=== PATIENT | male | born 1970 | race Caucasian/White ===

== ENCOUNTER 2017-01-15 13:48 | Emergency (ER) | payer OTHER ==
[~2017-01-15] VITALS: Ht 177.8 cm; Wt 90.9 kg
[~2017-01-15 13:48] MED LIST: AMOX500T PO; ATEN50TA2 PO; CARA1TAB2 PO; CATA0.1D TD; CEPALOZ2 OR; CEPH2CAP PO; CILOXAN OS; CLON0.5T PO; FLON0.05; FOLI1TAB OR; IBUP600T26 PO; IRON325T3 PO; LORA1TAB PO; MULTIVIT PO; NICO21DI26 EXT; NICO21DI4 TD; NICO21PAT EXT; OMEP20CA3 PO; OMEP40CA2 PO; OXAZ10CA PO; OXAZ15CA2 OR; PRED20TA PO; THIA100T OR; THIA100T PO; VALS80CA PO; VITACAP8 PO; ZOLO100T PO
[2017-01-15] MEDS ORDERED: METF500T13 PO (14:01)
[2017-01-15 14:36] VITALS: BP 135/78
== END 2017-01-15 14:37 | disposition home or self-care (01) ==
LOC: M ED 13:48
DX: F10.10 Alcohol abuse, uncomplicated (principal); E11.9 Type 2 diabetes mellitus without complications; I10 Essential (primary) hypertension; K21.9 Gastro-esophageal reflux disease without esophagitis; F17.210 Nicotine dependence, cigarettes, uncomplicated; Z79.84 Long term (current) use of oral hypoglycemic drugs; Z79.899 Other long term (current) drug therapy

== ENCOUNTER 2017-01-15 17:36 | Emergency (ER) | payer OTHER ==
[~2017-01-15] VITALS: Ht 177.8 cm; Wt 90.9 kg
[~2017-01-15 17:36] MED LIST changes: +METF500T13 PO
[2017-01-15 18:56] VITALS: BP 151/88
== END 2017-01-15 18:58 | disposition home or self-care (01) ==
LOC: M ED 17:36
DX: R10.10 Upper abdominal pain, unspecified (principal); E11.9 Type 2 diabetes mellitus without complications; I10 Essential (primary) hypertension; F17.210 Nicotine dependence, cigarettes, uncomplicated; Z79.84 Long term (current) use of oral hypoglycemic drugs; Z79.899 Other long term (current) drug therapy

== ENCOUNTER → 2017-03-01 | Outpatient (CLI) | payer OTHER ==
[2017-03-01 13:22] LABS: BASO % 0.4 % (0.0-1.0); EOS # 0.1 K/mm3 (0.0-0.50); EOS % 1.8 % (0.0-3.0); LYMPH # 2.2 K/mm3 (1.5-4.5); LYMPH % 31.9 % (24.0-44.0); MEAN CORPUSCULAR HEMOGLOBIN 31.1 pg (27.0-33.0); MEAN CORPUSCULAR VOLUME 91.3 fl (80.0-96.0); MONO # 0.4 K/mm3 (0.0-0.8); NEUTROPHILS % 57.4 % (36.0-66.0); RED CELL DISTRIBUTION WIDTH 14.2 % (11.5-14.5); WHITE BLOOD COUNT 6.9 K/mm3 (4.0-10.0)
[2017-03-01 13:34] LABS: ALBUMIN 3.9 GM/DL (3.2-5.2); ALBUMIN/GLOBULIN RATIO 0.93 (1.00-1.93); ALKALINE PHOSPHATASE 130 U/L (45-117); ALT/SGPT 57 U/L (12-78); ANION GAP 8 MEQ/L (8-16); AST/SGOT 47 U/L (15-37); BILIRUBIN,TOTAL 0.5 MG/DL (0.2-1.0); BLOOD UREA NITROGEN 8 MG/DL (7-18); CALCIUM LEVEL 9.2 MG/DL (8.5-10.1); CARBON DIOXIDE LEVEL 28 MEQ/L (21-32); CHLORIDE LEVEL 104 MEQ/L (98-107); CREATININE FOR GFR 0.82 MG/DL (0.70-1.30); GLOMERULAR FILTRATION RATE > 60.0 (>60); GLUCOSE, FASTING 121 MG/DL (70-105); POTASSIUM SERUM 4.1 MEQ/L (3.5-5.1); SODIUM LEVEL 140 MEQ/L (136-145); TOTAL PROTEIN 8.1 GM/DL (6.4-8.2)
== END ==
LOC: M WUC 08:51
PROVIDERS: ATTEND Nurse Practitioner Family
DX: D69.59 Other secondary thrombocytopenia (principal); I10 Essential (primary) hypertension; E11.9 Type 2 diabetes mellitus without complications; R79.89 Other specified abnormal findings of blood chemistry

== ENCOUNTER → 2017-05-23 | Outpatient (REF) | payer OTHER ==
[2017-05-23 15:54] LABS: ALBUMIN 4.1 GM/DL (3.2-5.2); ALBUMIN/GLOBULIN RATIO 0.93 (1.00-1.93); ALKALINE PHOSPHATASE 95 U/L (45-117); ALT/SGPT 24 U/L (12-78); ANION GAP 9 MEQ/L (8-16); AST/SGOT 20 U/L (7-37); BILIRUBIN,TOTAL 0.5 MG/DL (0.2-1.0); BLOOD UREA NITROGEN 7 MG/DL (7-18); CALCIUM LEVEL 9.2 MG/DL (8.5-10.1); CARBON DIOXIDE LEVEL 29 MEQ/L (21-32); CHLORIDE LEVEL 101 MEQ/L (98-107); CHOLESTEROL LEVEL 196 MG/DL (<200); CREATININE FOR GFR 0.92 MG/DL (0.70-1.30); GLOMERULAR FILTRATION RATE > 60.0 (>60); GLUCOSE, FASTING 130 MG/DL (70-105); POTASSIUM SERUM 4.6 MEQ/L (3.5-5.1); SODIUM LEVEL 139 MEQ/L (136-145); TOTAL PROTEIN 8.5 GM/DL (6.4-8.2); TRIGLYCERIDES LEVEL 147 MG/DL (<150)
== END ==
LOC: M LABDRAW1 13:46 → M LABNEURO 13:46
PROVIDERS: ATTEND Nurse Practitioner Family
DX: E11.9 Type 2 diabetes mellitus without complications (principal)

== ENCOUNTER 2018-09-11 21:23 | Inpatient (IN) | payer MEDICAID, OTHER ==
[~2018-09-11] VITALS: Ht 180.3 cm; Wt 90.0 kg
[2018-09-11] MEDS ORDERED: NS 1,000 ML IV ONE (22:15)
--- NOTE | 2018-09-11 22:39 | REP ---
Clinical: Trauma . Comparison: 07/30/2013 . Findings: The ventricles, sulci, and cisterns are normal in position and appearance. Kay-white differentiation is maintained. No acute intracranial hemorrhage, mass/mass effect, pathology or trauma/injury. No evidence for acute infarction. No extra-axial fluid collection. Calvarium is intact. Paranasal sinuses and mastoid air cells are clear. Impression: Normal noncontrast head CT. No evidence for acute intracranial pathology or trauma/injury. Electronically Signed by Geronimo Zhao MD 09/11/2018 10:31 P
[2018-09-11 22:40] LABS: HEMATOCRIT 40.9 % (42.0-52.0); HEMOGLOBIN 13.4 g/dl (13.5-17.5); MEAN CORPUSCULAR HEMOGLOBIN 28.2 pg (27.0-33.0); MEAN CORPUSCULAR HGB CONC 32.8 g/dl (32.0-36.5); MEAN CORPUSCULAR VOLUME 85.9 fl (80.0-96.0); RED BLOOD COUNT 4.76 10^6/uL (4.30-6.10); WHITE BLOOD COUNT 6.4 10^3/uL (4.0-10.0)
--- NOTE | 2018-09-11 22:41 | REP ---
Clinical: Trauma. Comparison: 07/30/2013 . Technique: Axial noncontrast images from the skull base to the thoracic inlet with coronal and sagittal re-formations Findings: Normal alignment and lordosis is maintained. Cervical vertebral bodies including transverse processes and spinous processes are intact and there is no evidence for acute fracture / compression injury or subluxation. Spinal canal is patent. Posterior elements are intact. Paravertebral soft tissues are normal. Impression: Age-related changes. No evidence for acute pathology or trauma/injury. Electronically Signed by Geronimo Zhao MD 09/11/2018 10:33 P
[2018-09-11 22:51] LABS: PLATELET COUNT, AUTOMATED 63 10^3/uL (150-450)
[2018-09-11 23:02] LABS: AMPHETAMINES LEVEL URINE NEGATIVE (NEGATIVE); BARBITURATES URINE NEGATIVE (NEGATIVE); BENZODIAZEPINES URINE POSITIVE (NEGATIVE); CANNABINOIDS URINE NEGATIVE (NEGATIVE); COCAINE METABOLITE URINE NEGATIVE (NEGATIVE); METHADONE URINE NEGATIVE (NEGATIVE); OPIATES URINE NEGATIVE (NEGATIVE); PHENCYCLIDINE URINE NEGATIVE (NEGATIVE)
[2018-09-11 23:14] LABS: ACETAMINOPHEN LEVEL < 2.0 UG/ML (10.0-30.0); ALBUMIN 3.6 GM/DL (3.2-5.2); ALT/SGPT 51 U/L (12-78); BILIRUBIN,DIRECT 0.1 MG/DL (0.0-0.2); BILIRUBIN,TOTAL 0.4 MG/DL (0.2-1.0); BLOOD UREA NITROGEN 5 MG/DL (7-18); CALCIUM LEVEL 8.3 MG/DL (8.5-10.1); CARBON DIOXIDE LEVEL 27 MEQ/L (21-32); CHLORIDE LEVEL 104 MEQ/L (98-107); CREATININE FOR GFR 0.78 MG/DL (0.70-1.30); ETHYL ALCOHOL (ETHANOL) 0.203 % (0.000-0.010); GLOMERULAR FILTRATION RATE > 60.0 (>60); GLUCOSE, FASTING 160 MG/DL (70-100); POTASSIUM SERUM 3.6 MEQ/L (3.5-5.1); SALICYLATE LEVEL < 1.7 MG/DL (5.0-30.0); SODIUM LEVEL 139 MEQ/L (136-145); THYROID STIMULATING HORMONE 0.395 uIU/ML (0.358-3.740)
[2018-09-12] MEDS ORDERED: OXAZEPAM 15 MG CAP PO ONE (00:45)
[2018-09-12] MEDS ORDERED: THIAMINE 100 MG TAB PO SCH ×2 (00:45→21:00)
[2018-09-12] MEDS ORDERED: DIAZ10TA2 PO (00:49)
[2018-09-12] MEDS ORDERED: FOLI1TAB11 PO (00:49)
[2018-09-12] MEDS ORDERED: OMEP20CA3 PO (00:49)
[2018-09-12] MEDS ORDERED: VITATAB11 PO (00:49)
[2018-09-12] MEDS ORDERED: ATEN50TA2 PO (00:49)
[2018-09-12] MEDS ORDERED: ZOLO100T PO (00:49)
[2018-09-12] MEDS ORDERED: IBUPOTC PO (00:49)
[2018-09-12] MEDS ORDERED: metFORMIN (GLUCOPHAGE) 500 MG TAB PO ONE (08:00)
[2018-09-12] MEDS ORDERED: ATENOLOL 50 MG TAB PO ONE (08:00)
[2018-09-12] MEDS ORDERED: diazePAM 10 MG TAB PO ONE (08:00)
[2018-09-12] MEDS ORDERED: OMEPRAZOLE 20 MG CAP PO ONE (08:00)
[2018-09-12] MEDS ORDERED: SERTRALINE 100 MG TAB PO ONE (08:00)
[2018-09-12] MEDS ORDERED: NICOTINE 21MG/24HR 1 EA TRANSDERMAL TD SCH (09:00)
[2018-09-12] MEDS ORDERED: FOLIC ACID 1 MG TAB PO SCH (09:00)
[2018-09-12] MEDS ORDERED: MULTIVITAMINS/MINERALS THERAP 1 TAB PO SCH (09:00)
[2018-09-12] MEDS: LORazepam 2 MG TAB PO PRN ×2 (09:45→12:58)
[2018-09-12] MEDS ORDERED: NICOTINE 21MG/24HR 1 EA TRANSDERMAL TD ONE (11:30)
[2018-09-12] MEDS ORDERED: cloNIDine 0.1 MG TAB PO PRN (13:00)
[2018-09-12] MEDS ORDERED: ACETAMINOPHEN TAB 650MG DOSE (2X325MG) PO PRN (13:00)
[2018-09-12] MEDS ORDERED: MAALOX 30 ML SUSP *UDC PO PRN (13:00)
[2018-09-12] MEDS ORDERED: MOM 30ML SUSPENSION UDC PO PRN (13:00)
[2018-09-12 13:29] VITALS: BP 175/99
[2018-09-12 13:32] VITALS: BP 175/99
[2018-09-12] MEDS ORDERED: LORazepam 2 MG TAB PO PRN (15:15)
[2018-09-12] MEDS: THIAMINE 100 MG TAB PO SCH (15:40)
[2018-09-12] MEDS: cloNIDine 0.1 MG TAB PO SCH ×2 (15:44→21:59)
[2018-09-12] MEDS: metFORMIN (GLUCOPHAGE) 500 MG TAB PO SCH (17:29)
[2018-09-12 18:00] VITALS: BP 148/88
[2018-09-12] MEDS: diazePAM 10 MG TAB PO PRN (19:03)
[2018-09-12] MEDS: OMEPRAZOLE 20 MG CAP PO SCH (21:58)
[2018-09-12] MEDS: VITAMIN B COMPLEX/VIT C CAP PO SCH (21:58)
[2018-09-12] MEDS: traZODone 50 MG TAB PO PRN (21:59)
[2018-09-13 06:39] VITALS: BP 160/90
[2018-09-13] MEDS: diazePAM 10 MG TAB PO PRN (06:53)
[2018-09-13] MEDS: SERTRALINE 100 MG TAB PO SCH (08:16)
[2018-09-13] MEDS: cloNIDine 0.1 MG TAB PO SCH ×3 (08:16→20:39)
[2018-09-13] MEDS: FOLIC ACID 1 MG TAB PO SCH (08:16)
[2018-09-13] MEDS: MULTIVITAMINS/MINERALS THERAP 1 TAB PO SCH (08:16)
[2018-09-13] MEDS: OMEPRAZOLE 20 MG CAP PO SCH ×2 (08:16→20:38)
[2018-09-13] MEDS: THIAMINE 100 MG TAB PO SCH ×2 (08:16→20:39)
[2018-09-13] MEDS: metFORMIN (GLUCOPHAGE) 500 MG TAB PO SCH ×2 (08:17→17:12)
[2018-09-13] MEDS: NICOTINE 21MG/24HR 1 EA TRANSDERMAL TD SCH (08:17)
[2018-09-13] MEDS ORDERED: MULTIVITAMINS/MINERALS THERAP 1 TAB PO SCH (09:00)
[2018-09-13] MEDS ORDERED: FOLIC ACID 1 MG TAB PO SCH ×2 (09:00)
--- NOTE | 2018-09-13 09:45 | HPEPDOC ---
[facility] Medical History & Physical Date of Admission Sep 12, 2018 History and Physical PCP: Bee Moreno NP ATTENDING: Dr. Monisha Jarquin HPI: 47 yo M admitted to [facility] for depressive disorder, being medically examined today. No acute medical complaints today. Denies any fevers, chills, weakness, fatigue, TELLEZ, CP, SOB, cough, palpitations, abdominal pain, N/V/D or changes in bowel or bladder habits. PMHx: Anxiety Depression DM Hypertension GERD PSHX: Denies SOCHX: Resides in: [facility] Marital Status: Kids: 4 Employment: Unemployed Tobacco use: One pack per day ETOH: One case of beer prior to admission, states had not drank alcohol for 3 years. Illicit Drugs: Denies IV Drug Use: Denies Tattoos done unprofessionally: Denies FAMHX: Mother: , lung cancer Father: , mesothelioma secondary to asbestos exposure Siblings: 6 Alive, diabetes, history of alcohol use Children: Alive, son with history of alcohol use Unexpected deaths due to medical reasons: None. ROS: As noted in HPI, otherwise 11pt ROS of systems reviewed and unremarkable. 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 PE: GEN: 47 yo M, appears stated age. Well-nourished, well developed. No acute distress. Alert and oriented x 3. Pleasant, interactive. HEENT: Normocephalic, atraumatic. Pupils are equal, round, and reactive to light. Extraocular movements are intact. No nystagmus appreciated. Sclera are nonicteric. Conjunctiva without injection. Nose midline. Nasal turbinates without bogginess. EACs both patent BL. TMs both visualized and elizabeth with good cone of light, no bulging or erythema. No facial asymmetry. Moist mucous memb ranes. Dentition fair. Pharynx pink and moist, no cobblestoning. Neck supple, trachea midline. No lymphadenopathy or thyromegaly appreciated. CHEST: Regular rate and rhythm, +S1, +S2 LUNGS: Clear to auscultation bilaterally. No wheezes, rales, or rhonchi. Breathing appears symmetric and easy. Patient is speaking in full sentences. No accessory muscle use. ABD: Round, soft, non-tender, non-distended. +Bowel sounds throughout. No rebound or guarding. No costovertebral angle tenderness. EXT: Pulses 2+ bilaterally dorsalis pedis and radial. No lower extremity edema appreciated. SKIN: [place], dry, warm. Capillary refill <2sec. No rashes. NEURO: Alert and oriented x 3. Cranial nerves III-XII are intact. No focal deficits appreciated. EKG: pending A&P: 47 yo M admitted to [facility] for depressive disorder 1. Psych. Plan per Psychiatry. Obtain baseline EKG to assure the safety of psychiatric medications as they can prolong the QT interval. 2. Nicotine dependence. Patch available. 3. DM. Consistent carbohydrate diet. Continue metformin 500 mg by mouth twice a day. Blood sugar this a.m. was noted to be 162. 4. Follow up with PCP on discharge. 5. Substance use. Management per psychiatry. Continue with MVI, Thiamine, and Folic Acid supplementation. 6. Hypertension. Continue atenolol 50 mg by mouth daily. 7. GERD. Continue Prilosec 40 mg by mouth daily. 8. Elevated AST. Likely related to alcohol use. Recheck CMP in a.m. 9. Staff member Alverto present throughout exam. Vital Signs Vital Signs Date Time Temp Pulse Resp B/P (MAP) Pulse Ox O2 Delivery O2 Flow Rate FiO2 09/13/18 08:16 160/90 09/13/18 06:39 98.8 73 16 09/12/18 08:08 97 Room Air Laboratory Data Labs 24H Laboratory Tests 2 09/13/18 06:22: Bedside Glucose (Misc Panel) 162H Home Medications Scheduled Atenolol (Atenolol) 50 Mg Tab, 50 MG PO DAILY B1/B2/B3/B5/B6 (Vitamin B Complex) 1 Tab Tab, 1 TAB PO DAILY Folic Acid (Folic Acid) 1 Mg Tab, 1 MG PO DAILY Metformin Hydrochloride (Metformin HCl) 500 Mg Tab, 500 MG PO BID Omeprazole (Omeprazole) 20 Mg Cap, 20 MG PO BID Sertraline Hcl (Zoloft) 100 Mg Tab, 100 MG PO DAILY Scheduled PRN Diazepam (Diazepam) 10 Mg Tab, 10 MG PO TID PRN for ANXIETY Ibuprofen (Ibuprofen) 200 Mg Tab, 600 MG PO Q6H PRN for HEADACHE OR PAIN Allergies Coded Allergies: No Known Allergies (Verified , 09/11/18) Tamela Teresa Sep 13, 2018 09:45
[2018-09-13] MEDS: VITAMIN B COMPLEX/VIT C CAP PO SCH (09:56)
[2018-09-13] MEDS: ATENOLOL 50 MG TAB PO SCH (10:00)
[2018-09-13] MEDS ORDERED: diazePAM 10 MG TAB PO PRN (14:30)
--- NOTE | 2018-09-13 14:50 | MHHPEPDOC ---
General Date Of Admission: Sep 13, 2018 Legal Status: 9.39 Chief Complaint "I drank too much" History of Present Illness HISTORY OF THE PRESENT ILLNESS: Patient is a 47 -year-old , male, who reports he was drinking with his family and ended up "passing out" so his oldest brother called EMS, bringing him into the hospital. Says he drank "too much", reports he has antabuse at home and wants to go to AA meetings with his son. Reports he is not suicidal, but has been depressed over last several weeks. He has depression that runs in the family, including son, sister. Reports he may have made statements he cannot remember when intoxicated and that he would "never harm myself". Reports caring for mother in law, who is passing away slowly from cancer, winter weather and drinking with visiting sister, brother and nephew as stressors. Reports he has not drank since his last admission in December 2016 prior to this period of drinking. Last couple weeks says he has drank up to 18 drinks per week and prior to admission drank 24 beers. Says he has been consistent with his sertraline 100 mg PO daily. His was contacted by social work and reports no ligature scott on neck, does not believe he has actually attempted in the past or tried to hang himself on this occasion. He has loops for hanging his deer in the garage. He has made vague suicidal statements to her in the past, without an active plan and always in context of alcohol use, which is increased during the holiday season. reports she has removed weapons from the home. He has no past inpatient psychiatric appointments. Agrees to start acamprosate for alcohol cravings, aripiprazole for augmentation of SSRI and decrease prn valium with plan to frank down and discontinue. Denies withdrawal symptoms including shakiness, sweating and has not received lorazepam for elevated CIWA score. Reports he wants to leave and feels safe to leave. Currently denies SI/HI/AVH/PTSD/howard. Psychiatric Review of Systems Depression (2 or more weeks): depressed mood (Says he has been sad since mother and law slowly passing away, used to take of her. ), anhedonia (Has not been doing his uilding, he is semi retired.), feelings of excess/guilt (Related to drinking.) Howard (4 or more days of): denies Psychosis: denies PTSD: denies Anxiety: gen/non-specific anxiety (Reports everyday stress), panic attacks (prior to starting the zoloft in 2002 ) Anxiety/ 6 months or more of: restlessness, keyed up Past Psychiatric History Previous Psychiatric Diagnosis: "depression", alcohol use disorder Previous Psychiatric Admissions: No past admissions reported. Denies any dual diagnosis or inpatient rehab admissions. Suicide Attempts: Denies Psychiatric Follow-up: Dr Jennifer Moreno, PCP, prescribes his medications, does not have an outpatient therapist Psychiatric medications: sertraline (denies side effects, reports helps with mood), valium (for anxiety) Past Medical History Medical Problems HTN, GERD and DM2 Head Injury: Yes (On this admission says he fell and may have hit his head (CT in Ed negative on this admission)) Seizures: No Hospitalizations: Yes Surgeries: No Family Medical/Psychiatric HX Medical Problems Both parents . DM 2 in brother Edgardo, father, mother, maternal grandmother. HTN in father, paternal grandfather, brothers. Mother Sclc. Family hx of GERD Psychiatric Disorders: Yes Addiction: Yes (Reports 2 sisters, oldest brother had alcoholism) Suicide Attemps/Completions: No Addiction History nicotine (1 ppd), alcohol Social History Childhood: Grew up in [place], [place], parents were . Grew up with 2 sisters and 3 brothers, he was second to youngest. Father 3 years ago due to mesothelioma, now receiving benefits (main source of income). Currently lives in an owned house, in [facility] [place], lives with , "Radha" (18 years together)and 2 boys (24 from first marriage, 20 y/o), 1 daughter (16 y/o daughter). Has a "love child" from former girlfriend when 17, she's [place], not in contact anymore. 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 Marital: Mental Status Examination General Appearance: unkempt, personal clothing Build: average Demeanor: guarded, very figety Eye Contact: avoidant Activity: slowed, anxious Behavior: resistant, restless, withdrawn, status post overdose Speech: clear, spontaneous, reg/rate,rhythm,volume Mood: anxious, irritable Mood depressed Affect: constricted, congruent, anxious Thought Process: logical/linear Thought Content (Delusions): none reported Thought Content (Other): guarded, guilty Thought Content (Aggressive): none reported Perception (Hallucinations): none reported Perception (Other): none reported Cognition (Impairment of): attention/concentration Oriented: Awake, Alert, Oriented times three Insight: poor Judgment: Poor Psychosis: Denies Diagnoses 1. Generalized anxiety disorder 2. Alcohol use disorder, chronic, severe 3. Seasonal affective disorder 4. Tobacco use disorder Assessment Patient is admitted on a after brother called EMS, brought to hospital with alcohol intoxication. Denies withdrawal symptoms including shakiness, headache. Agreeable to continue medications including 100 mg Po sertraline for mood. Denies side effects of medications. Likely minimizing alcohol use. Reports benzodiazepines and alcohol on occasion help with chronic, greater than 6 months, generalized anxiety. Wants to leave. Denies SI/HI/AVH/howard/PTSD symptoms. He is pre-contemplative regarding alcohol use and likely minimizing use, not amenable for inpatient rehab. Reports he wants to return home and has support from his family. Agreeable to starting medications. Was educated regarding alcohol and tobacco use. Problem List Problems: (1) ETOH abuse Status: Chronic Response to Treatment: Progressing Discussed With: Patient (2) Suicidal ideation Status: Resolved Discussed With: Patient Initial Treatment Plan 1. Patient was admitted on a [] status. 2. Complete history was obtained. 3. With patients permission, family will be contacted and database will be expanded. 4. Patients medication regimen will be reviewed and changed accordingly. 5. Patient will be provided with protected environment. 6. Patient will be treated with individual, group, and milieu therapies. 7. Patient will receive supportive psych-education. 8. Discharge planning will commence immediately. 9. Outpatient follow-up treatment will be strongly recommended. 10. The initial treatment plan will focus initially on: * Depression. * Risk for suicide. * Substance abuse, alcohol abuse. ESTIMATED LENGTH OF STAY: 5-7 DAYS. TIME SPENT COUNSELING AND COORDINATING INITIAL CARE: 60 minutes. Vital Signs Vital Signs Date Time Temp Pulse Resp B/P (MAP) Pulse Ox O2 Delivery O2 Flow Rate FiO2 09/13/18 10:00 72 150/88 09/13/18 06:39 98.8 16 09/12/18 08:08 97 Room Air Laboratory Data 24H Labs Laboratory Tests 2 09/13/18 06:22: Bedside Glucose (Misc Panel) 162H Medications Scheduled Atenolol (Atenolol) 50 Mg Tab, 50 MG PO DAILY, (Reported) B1/B2/B3/B5/B6 (Vitamin B Complex) 1 Tab Tab, 1 TAB PO DAILY, (Reported) Folic Acid (Folic Acid) 1 Mg Tab, 1 MG PO DAILY, (Reported) Metformin Hydrochloride (Metformin HCl) 500 Mg Tab, 500 MG PO BID, (Reported) Omeprazole (Omeprazole) 20 Mg Cap, 20 MG PO BID, (Reported) Sertraline Hcl (Zoloft) 100 Mg Tab, 100 MG PO DAILY, (Reported) Scheduled PRN Diazepam (Diazepam) 10 Mg Tab, 10 MG PO TID PRN for ANXIETY, (Reported) Ibuprofen (Ibuprofen) 200 Mg Tab, 600 MG PO Q6H PRN for HEADACHE OR PAIN, (Reported) Allergies Coded Allergies: No Known Allergies (Verified , 09/11/18) MARGARITO ROUSSEAU PGY-1 Sep 13, 2018 12:07
[2018-09-13] MEDS: ACAMPROSATE CALCIUM 333 MG TABLET (CAMPRAL) PO SCH ×2 (15:14→20:39)
[2018-09-13 18:00] VITALS: BP 152/82
--- NOTE | 2018-09-13 19:35 | ECGEPIP ---
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
[2018-09-13] MEDS: ARIPiprazole 2 MG TAB PO SCH (20:39)
[2018-09-13] MEDS: traZODone 50 MG TAB PO PRN (20:39)
[2018-09-13 21:50] VITALS: BP 148/80
[2018-09-14 06:37] VITALS: BP 131/72
[2018-09-14 06:45] LABS: HEMATOCRIT 41.7 % (42.0-52.0); HEMOGLOBIN 13.7 g/dl (13.5-17.5); MEAN CORPUSCULAR HEMOGLOBIN 28.5 pg (27.0-33.0); MEAN CORPUSCULAR HGB CONC 32.9 g/dl (32.0-36.5); MEAN CORPUSCULAR VOLUME 86.7 fl (80.0-96.0); RED BLOOD COUNT 4.81 10^6/uL (4.30-6.10); WHITE BLOOD COUNT 5.1 10^3/uL (4.0-10.0)
[2018-09-14 07:00] LABS: HEMOGLOBIN A1c 7.6 %
[2018-09-14 07:10] LABS: ALBUMIN 3.7 GM/DL (3.2-5.2); ALT/SGPT 53 U/L (12-78); BILIRUBIN,TOTAL 0.7 MG/DL (0.2-1.0); BLOOD UREA NITROGEN 8 MG/DL (7-18); CALCIUM LEVEL 8.7 MG/DL (8.5-10.1); CARBON DIOXIDE LEVEL 28 MEQ/L (21-32); CHLORIDE LEVEL 101 MEQ/L (98-107); CHOLESTEROL LEVEL 207 MG/DL (<200); CHOLESTEROL RISK RATIO 6.088 (<5); CREATININE FOR GFR 0.88 MG/DL (0.70-1.30); GLOMERULAR FILTRATION RATE > 60.0 (>60); GLUCOSE, FASTING 172 MG/DL (70-100); HDL CHOLESTEROL 34 MG/DL (>40); LDL CHOLESTEROL 129 MG/DL (<100); NON-HDL-C 173 MG/DL; POTASSIUM SERUM 3.9 MEQ/L (3.5-5.1); SODIUM LEVEL 137 MEQ/L (136-145); TOTAL PROTEIN 7.8 GM/DL (6.4-8.2); TRIGLYCERIDES LEVEL 221 MG/DL (<150)
[2018-09-14 07:11] LABS: PLATELET COUNT, AUTOMATED 50 10^3/uL (150-450)
[2018-09-14] MEDS: SERTRALINE 100 MG TAB PO SCH (08:30)
[2018-09-14] MEDS: ACAMPROSATE CALCIUM 333 MG TABLET (CAMPRAL) PO SCH (08:30)
[2018-09-14] MEDS: OMEPRAZOLE 20 MG CAP PO SCH (08:30)
[2018-09-14 08:31] VITALS: BP 131/72
[2018-09-14] MEDS: ATENOLOL 50 MG TAB PO SCH (08:31)
[2018-09-14] MEDS: VITAMIN B COMPLEX/VIT C CAP PO SCH (08:31)
[2018-09-14] MEDS: metFORMIN (GLUCOPHAGE) 500 MG TAB PO SCH (08:31)
[2018-09-14] MEDS: THIAMINE 100 MG TAB PO SCH (08:31)
[2018-09-14] MEDS: ARIPiprazole 2 MG TAB PO SCH (08:31)
[2018-09-14] MEDS: cloNIDine 0.1 MG TAB PO SCH (08:31)
[2018-09-14] MEDS: FOLIC ACID 1 MG TAB PO SCH (08:32)
[2018-09-14] MEDS: NICOTINE 21MG/24HR 1 EA TRANSDERMAL TD SCH (08:32)
[2018-09-14] MEDS: MULTIVITAMINS/MINERALS THERAP 1 TAB PO SCH (09:00)
[2018-09-14] MEDS ORDERED: ARIP2TAB PO (11:01)
[2018-09-14] MEDS ORDERED: NICO21PAT TD (11:01)
[2018-09-14] MEDS ORDERED: VITMTA PO (11:01)
[2018-09-14] MEDS ORDERED: CLONI1TA PO (11:01)
[2018-09-14] MEDS ORDERED: THIA100TA PO (11:01)
[2018-09-14] MEDS ORDERED: TRAZO50TA PO (11:01)
[2018-09-14] MEDS ORDERED: LISI10TA4 PO (11:06)
[2018-09-14] MEDS ORDERED: DIAZ5TAB PO (11:08)
[2018-09-14] MEDS ORDERED: ABIL1TAB11 PO (16:19)
--- NOTE | 2018-09-15 09:34 | MHDSPDOC ---
[facility] Discharge Summary Discharge Summary DATE OF ADMISSION: Sep 12, 2018 at 12:46 DATE OF DISCHARGE: Sep 14, 2018 DISCHARGE DIAGNOSES: 1. Generalized anxiety disorder 2. Alcohol use disorder, chronic, severe 3. Seasonal affective disorder 4. Tobacco use disorder REASON FOR ADMISSION: Per this financial underwriter's H and P 09/12/18: "Patient is a 47 -year-old , male, who reports he was drinking with his family and ended up "passing out" so his oldest brother called EMS, bringing him into the hospital. Says he drank "too much", reports he has antabuse at home and wants to go to AA meetings with his son. Reports he is not suicidal, but has been depressed over last several weeks. He has depression that runs in the family, including son, sister. Reports he may have made statements he cannot remember when intoxicated and that he would "never harm myself". Reports caring for mother in law, who is passing away slowly from cancer, winter weather and drinking with visiting sister, brother and nephew as stressors. Reports he has not drank since his last admission in December 2016 prior to this period of drinking. Last couple weeks says he has drank up to 18 drinks per week and prior to admission drank 24 beers. Says he has been consistent with his sertraline 100 mg PO daily. His was contacted by social work and reports no ligature scott on neck, badillo s not believe he has actually attempted in the past or tried to hang himself on this occasion. He has loops for hanging his deer in the garage. He has made vague suicidal statements to her in the past, without an active plan and always in context of alcohol use, which is increased during the holiday season. reports she has removed weapons from the home. He has no past inpatient psychiatric appointments. Agrees to start acamprosate for alcohol cravings, aripiprazole for augmentation of SSRI and decrease prn valium with plan to frank down and discontinue. Denies withdrawal symptoms including shakiness, sweating and has not received lorazepam for elevated CIWA score. Reports he wants to leave and feels safe to leave." CONSULTANTS INVOLVED: None TREATMENT AND PROGRESS ON THE UNIT : Patient admitted on a 9.39 after making suicidal statements while intoxicated with alcohol, BAL on admission 0.205, was given fluids in the ED, B vitamin complex, folic acid, thiamine, put on CIWA protocol with diazepam 10 mg TID and received ibuprofen for headache. EKG showed since rhythm with SVPC's and non-specific conduction delay,normal range QTc (denied chest pain, SOB or neurological changes during stay), cbc showed anemia with hgb of 13.4 g/dl which on repeat cbc was 13.7 g/dl (within normal range), cmp was unremarkable apart from elevated glucose in 160's-170's mg/dl and AST of 57 U/l. Lipid panel showed elevated LDL at 129 mg/dl, elevated total cholesterol at 207 mg/dl and low hdl level at 34 mg/dl. His haba1c was 7.6% showing uncontrolled diabetes. He was continued on CIWA protocol with diazepam (tapered down to 5 mg PO TID PRN for withdrawals/anxiety), thiamine, folic acid sup plementation during stay. Was taking clonidine 0.1 PO TID for anxiety which was discontinued due to continuing his other blood pressure medications, atenolol 50 mg daily and added lisinopril 10 mg daily. He was continued on metformin 500 mg BID for diabetes and other home medications including sertraline 100 mg daily for depression, omeprazole 20 mg BID for gastro-esophageal reflux disease. His mood and anxiety improved during stay. He was started on aripiprazole 5 mg QHS for augmentation of his antidepressant and impulse control. Was educated about risks of chronic alcohol use. Reports he started drinking more during holidays and did not want inpatient rehabilitation, reporting he did not think he needed the treatment. During stay denied suicidal ideations or homicidal ideations and tolerated medications without side effects. Reports may have made statements while intoxicated. He did not attend most group therapy sessions. He was pre- occupied about discharge and returning home. He felt safe to leave and family agreed he could return home. HOSPITAL COURSE: See above DISCHARGE ASSESSMENT: Patient in no acute distress, alert and oriented x4, At time of discharge denies any suicidal or homicidal ideations, denies any hallucinations, paranoia, symptoms of alcohol withdrawal, denies any side effects of medications, denies any PTSD symptoms. Has mild anxiety while waiting to leave and return home to his family. Agreeable to discharge. MENTAL STATUS EXAMINATION ON DISCHARGE: Patient is a 47-year old male, who is calm, cooperative, in casual clothing, glasses and short hair, poor hygiene, good eye-contact. Speech is normal rate, rhythm, volume Language skills are intact Thought processes including: linear, logical Thought content: Preoccupied with returning home to see family. Abstract reasoning, and computation: intact. Description of associations: intact. Description of abnormal or psychotic thoughts: denies. Judgment: poor Insight: poor Orientation: x4 Recent and remote memory: intact Attention span and concentration: fair Language: hungarian Fund of knowledge: average Mood: "good" Affect: mild anxiety, full range, smiles MEDICATIONS ON DISCHARGE: Scheduled Aripiprazole (Abilify) 5 Mg Tab, 1 TAB PO QHS for depression Atenolol (Atenolol) 50 Mg Tab, 50 MG PO DAILY B1/B2/B3/B5/B6 (Vitamin B Complex) 1 Tab Tab, 1 TAB PO DAILY Folic Acid (Folic Acid) 1 Mg Tab, 1 MG PO DAILY Lisinopril (Lisinopril) 10 Mg Tab, 1 TAB PO DAILY for HYPERTENSION Metformin Hydrochloride (Metformin HCl) 500 Mg Tab, 500 MG PO BID for diabetes Multivitamins *[facility]* (Thera M Plus *[facility]*) 1 Tab Tab, 1 TAB PO DAILY for ALCOHOL WITHDRAWALS Nicotine (Nicotine Transdermal Syst) 21 Mg/24 Hr Dis, 1 PATCH TD DAILY for NICOTINE WITHDRAWALS Omeprazole (Omeprazole) 20 Mg Cap, 20 MG PO BID for Gerd Sertraline Hcl (Zoloft) 100 Mg Tab, 100 MG PO DAILY for depression Thiamine Hcl (Thiamine Hcl) 100 Mg Tab, 100 MG PO BID for ALCOHOL WITHDRAWALS Scheduled PRN Diazepam (Diazepam) 5 Mg Tab, 1 TAB PO BIDP PRN for anxiety Ibuprofen (Ibuprofen) 200 Mg Tab, 600 MG PO Q6H PRN for HEADACHE OR PAIN, Trazodone HCl (Trazodone HCl) 50 Mg Tab, 50 MG PO QHSP PRN for INSOMNIA PLAN/FOLLOWUP ARRANGEMENTS: Follow Up Care Education Label * Mental Health Appt 1 * Mental Health [facility]ism * Established With This Provider No * Therapist ALPHONSE RAO * Date Sep 18, 2018 * Time 08:00 * Address of Clinic or Practice [address] [place] [address] * * Additional information Please remember to bring your insurance card and photo ID to the appointment. Follow Up Care Education Label * Chemical Dependency Appt1 * Chemical Dependency [facility] * Established With This Provider No Follow Up Care Education Label * Medical * Medical Follow Up [facility] * Established With This Provider Yes * Therapist GILDARDO VELASCO * Date Sep 20, 2018 * Time 09:40 * Address of Clinic or Practice [address] [place] [address] * The amount of time spent in the coordination of care for this patient was approximately 10 minutes. Vital Signs/I&Os Vital Signs Date Time Temp Pulse Resp B/P (MAP) Pulse Ox O2 Delivery O2 Flow Rate FiO2 09/14/18 08:31 131/72 09/14/18 08:31 88 09/14/18 06:37 97.5 14 09/12/18 08:08 97 Room Air Laboratory Data Labs 24H Laboratory Tests 2 09/14/18 06:23: Nucleated Red Blood Cells % (auto) 0.0, Immature Platelet Fraction 5.8, Anion Gap 8, Glomerular Filtration Rate > 60.0, Estimated Mean Plasma Glucose 171H, Hemoglobin A1c 7.6, Blood Urea Nitrogen 8#, Creatinine 0.88, Sodium Level 137, Potassium Level 3.9, Chloride Level 101, Carbon Dioxide Level 28, Calcium Level 8.7, Aspartate Amino Transf (AST/SGOT) 57H, Alanine Aminotransferase (ALT/SGPT) 53, Alkaline Phosphatase 109, Total Bilirubin 0.7#, Triglycerides Level 221H, LDL Cholesterol 129H, Total Protein 7.8, Albumin 3.7, Albumin/Globulin Ratio 0.90L, Total Cholesterol 207H, Non-HDL Cholesterol (LDL + VLDL) 173, Total HDL Cholesterol 34L, Cholesterol/HDL Ratio 6.088H CBC/BMP Laboratory Tests 09/14/18 06:23 Red Blood Count 4.81, Mean Corpuscular Volume 86.7, Mean Corpuscular Hemoglobin 28.5, Mean Corpuscular Hemoglobin Concent 32.9, Red Cell Distribution Width 15.0 H, Calcium Level 8.7, Aspartate Amino Transf (AST/SGOT) 57 H, Alanine Aminotran sferase (ALT/SGPT) 53, Alkaline Phosphatase 109, Total Bilirubin 0.7 #, Triglycerides Level 221 H, LDL Cholesterol 129 H, Total Protein 7.8, Albumin 3.7 Medications Scheduled Aripiprazole (Abilify) 5 Mg Tab, 1 TAB PO QHS for qmp for 7 Days, #7 Atenolol (Atenolol) 50 Mg Tab, 50 MG PO DAILY, (Reported) B1/B2/B3/B5/B6 (Vitamin B Complex) 1 Tab Tab, 1 TAB PO DAILY, (Reported) Folic Acid (Folic Acid) 1 Mg Tab, 1 MG PO DAILY, (Reported) Lisinopril (Lisinopril) 10 Mg Tab, 1 TAB PO DAILY for HYPERTENSION for 7 Days, #7 Metformin Hydrochloride (Metformin HCl) 500 Mg Tab, 500 MG PO BID, (Reported) Multivitamins *[facility]* (Thera M Plus *[facility]*) 1 Tab Tab, 1 TAB PO DAILY for ALCOHOL WITHDRAWALS, #7 Nicotine (Nicotine Transdermal Syst) 21 Mg/24 Hr Dis, 1 PATCH TD DAILY for NICOTINE WITHDRAWALS, #7 Omeprazole (Omeprazole) 20 Mg Cap, 20 MG PO BID, (Reported) Sertraline Hcl (Zoloft) 100 Mg Tab, 100 MG PO DAILY, (Reported) Thiamine Hcl (Thiamine Hcl) 100 Mg Tab, 100 MG PO BID for ALCOHOL WITHDRAWALS, #14 Scheduled PRN Diazepam (Diazepam) 5 Mg Tab, 1 TAB PO BIDP PRN for anxiety for 7 Days, #14 Ibuprofen (Ibuprofen) 200 Mg Tab, 600 MG PO Q6H PRN for HEADACHE OR PAIN, (Reported) Trazodone HCl (Trazodone HCl) 50 Mg Tab, 50 MG PO QHSP PRN for INSOMNIA, #7 Allergies Coded Allergies: No Known Allergies (Verified , 09/11/18) MARGARITO ROUSSEAU PGY-1 Sep 14, 2018 12:04
== END 2018-09-14 12:35 | disposition home or self-care (01) | DRG 756 ==
LOC: M ED 21:23 → M ED INP 09-12 12:46 → M PSY 09-12 13:20
PROVIDERS: ADMIT Psychiatry & Neurology Psychiatry; ATTEND Psychiatry & Neurology Psychiatry
DX: F41.1 Generalized anxiety disorder (principal); I10 Essential (primary) hypertension; F10.229 Alcohol dependence with intoxication, unspecified; F17.200 Nicotine dependence, unspecified, uncomplicated; K21.9 Gastro-esophageal reflux disease without esophagitis; E11.9 Type 2 diabetes mellitus without complications; Z79.84 Long term (current) use of oral hypoglycemic drugs; Z79.899 Other long term (current) drug therapy

== ENCOUNTER 2018-10-05 18:00 | Emergency (ER) | payer MEDICAID, OTHER ==
[~2018-10-05] VITALS: Ht 177.8 cm; Wt 90.9 kg
[~2018-10-05 18:00] MED LIST changes: +ABIL1TAB11 PO; +ARIP1TAB4 PO; +CLONI1TA PO; +DIAZ10TA2 PO; +DIAZ5TAB PO; +FOLI1TAB11 PO; +IBUPOTC PO; +LISI10TA4 PO; +NICO21DI3 EXT; -NICO21PAT EXT; +NICO21PAT TD; +THIA100TA PO; +TRAZO50TA PO; +VITATAB11 PO; +VITMTA PO
[2018-10-05] MEDS ORDERED: AUGMENTIN 875 MG TAB PO ONE (19:45)
[2018-10-05] MEDS ORDERED: ADACEL/BOOSTRIX VACCINE (DIPHTH/PERTUSS/ACELL/TETANUS)0.5ML SYR (90715) IM ONE (19:45)
[2018-10-05] MEDS ORDERED: IBUP-1022 PO (19:54)
[2018-10-05] MEDS ORDERED: AUGM875T28 PO (19:54)
[2018-10-05 19:56] VITALS: BP 148/95
== END 2018-10-05 20:03 | disposition home or self-care (01) ==
LOC: M ED 18:00
DX: S01.311A Laceration without foreign body of right ear, initial encounter (principal); S51.831A Puncture wound without foreign body of right forearm, initial encounter; W54.0XXA Bitten by dog, initial encounter; Y92.89 Other specified places as the place of occurrence of the external cause; I10 Essential (primary) hypertension; Z79.899 Other long term (current) drug therapy; F17.210 Nicotine dependence, cigarettes, uncomplicated

== ENCOUNTER 2018-10-23 13:55 | Emergency (ER) | payer OTHER ==
[~2018-10-23 13:55] MED LIST changes: +AUGM875T28 PO; +IBUP-1022 PO
[2018-10-23 14:59] VITALS: BP 160/94
[2018-10-24] MEDS ORDERED: DIAZ10TA2 PO (12:46)
[2018-10-24] MEDS ORDERED: MULTCAP PO (12:46)
[2018-10-24] MEDS ORDERED: VITATAB47 PO (12:46)
== END 2018-10-23 15:01 | disposition home or self-care (01) ==
LOC: M ED 13:55
DX: F10.10 Alcohol abuse, uncomplicated (principal); S60.819A Abrasion of unspecified wrist, initial encounter; Y04.8XXA Assault by other bodily force, initial encounter; Y93.9 Activity, unspecified; Y99.9 Unspecified external cause status; E11.9 Type 2 diabetes mellitus without complications; I10 Essential (primary) hypertension; K21.9 Gastro-esophageal reflux disease without esophagitis; F41.9 Anxiety disorder, unspecified; Z72.0 Tobacco use; Z79.84 Long term (current) use of oral hypoglycemic drugs; Z79.899 Other long term (current) drug therapy

== ENCOUNTER 2018-10-23 23:49 | Inpatient (IN) | payer MEDICAID, OTHER ==
[~2018-10-23] VITALS: Ht 175.3 cm; Wt 69.0 kg
[2018-10-24 00:29] LABS: HEMATOCRIT 43.9 % (42.0-52.0); HEMOGLOBIN 14.4 g/dl (13.5-17.5); MEAN CORPUSCULAR HEMOGLOBIN 28.2 pg (27.0-33.0); MEAN CORPUSCULAR HGB CONC 32.8 g/dl (32.0-36.5); MEAN CORPUSCULAR VOLUME 85.9 fl (80.0-96.0); RED BLOOD COUNT 5.11 10^6/uL (4.30-6.10)
[2018-10-24 00:42] LABS: AMPHETAMINES LEVEL URINE NEGATIVE (NEGATIVE); BARBITURATES URINE NEGATIVE (NEGATIVE); BENZODIAZEPINES URINE POSITIVE (NEGATIVE); CANNABINOIDS URINE NEGATIVE (NEGATIVE); COCAINE METABOLITE URINE NEGATIVE (NEGATIVE); METHADONE URINE NEGATIVE (NEGATIVE); OPIATES URINE NEGATIVE (NEGATIVE); PHENCYCLIDINE URINE NEGATIVE (NEGATIVE)
[2018-10-24 00:50] LABS: ACETAMINOPHEN LEVEL < 2.0 UG/ML (10.0-30.0); ALBUMIN 3.8 GM/DL (3.2-5.2); ALT/SGPT 65 U/L (12-78); BILIRUBIN,DIRECT 0.2 MG/DL (0.0-0.2); BILIRUBIN,TOTAL 0.5 MG/DL (0.2-1.0); BLOOD UREA NITROGEN 4 MG/DL (7-18); CALCIUM LEVEL 7.8 MG/DL (8.5-10.1); CARBON DIOXIDE LEVEL 25 MEQ/L (21-32); CHLORIDE LEVEL 106 MEQ/L (98-107); ETHYL ALCOHOL (ETHANOL) 0.295 % (0.000-0.010); GLOMERULAR FILTRATION RATE > 60.0 (>60); GLUCOSE, FASTING 158 MG/DL (70-100); POTASSIUM SERUM 3.5 MEQ/L (3.5-5.1); SALICYLATE LEVEL 2.4 MG/DL (5.0-30.0); SODIUM LEVEL 140 MEQ/L (136-145); THYROID STIMULATING HORMONE 0.644 uIU/ML (0.358-3.740); TOTAL PROTEIN 7.9 GM/DL (6.4-8.2)
[2018-10-24 01:03] LABS: PLATELET COUNT, AUTOMATED 78 10^3/uL (150-450)
[2018-10-24] MEDS ORDERED: MULTIVITAMINS/MINERALS THERAP 1 TAB PO SCH (09:00)
[2018-10-24] MEDS ORDERED: metFORMIN (GLUCOPHAGE) 500 MG TAB PO ONE (09:30)
[2018-10-24] MEDS ORDERED: ATENOLOL 50 MG TAB PO ONE (09:30)
[2018-10-24] MEDS ORDERED: MULTIVITAMINS/MINERALS THERAP 1 TAB PO ONE (09:30)
[2018-10-24] MEDS ORDERED: SERTRALINE 100 MG TAB PO ONE (09:30)
[2018-10-24] MEDS ORDERED: diazePAM 10 MG TAB PO ONE (09:30)
[2018-10-24] MEDS ORDERED: OMEPRAZOLE 20 MG CAP PO ONE (09:30)
[2018-10-24] MEDS ORDERED: diazePAM 5 MG TAB PO ONE (09:45)
[2018-10-24] MEDS ORDERED: DIAZ10TA2 PO (12:46)
[2018-10-24] MEDS ORDERED: VITATAB47 PO (12:46)
[2018-10-24] MEDS ORDERED: MULTCAP PO (12:46)
[2018-10-24] MEDS ORDERED: ACETAMINOPHEN TAB 650MG DOSE (2X325MG) PO PRN (13:00)
[2018-10-24] MEDS ORDERED: MOM 30ML SUSPENSION UDC PO PRN (13:00)
[2018-10-24] MEDS ORDERED: MAALOX 30 ML SUSP *UDC PO PRN (13:00)
[2018-10-24] MEDS ORDERED: LORazepam 2 MG TAB PO PRN (13:00)
[2018-10-24] MEDS ORDERED: traZODone 50 MG TAB PO PRN (13:00)
[2018-10-24 13:28] VITALS: BP 186/98
[2018-10-24 13:30] VITALS: BP 186/98
[2018-10-24] MEDS: THIAMINE 100 MG TAB PO SCH ×2 (13:39→20:27)
[2018-10-24] MEDS: FOLIC ACID 1 MG TAB PO SCH (13:39)
[2018-10-24] MEDS: NICOTINE 21MG/24HR 1 EA TRANSDERMAL TD SCH (13:45)
[2018-10-24 15:28] VITALS: BP 170/90
[2018-10-24] MEDS: cloNIDine 0.1 MG TAB PO SCH ×2 (16:00→20:28)
[2018-10-24] MEDS: diazePAM 10 MG TAB PO PRN (16:00)
[2018-10-24] MEDS ORDERED: IBUPROFEN 800 MG TAB PO PRN (17:00)
[2018-10-24] MEDS: metFORMIN (GLUCOPHAGE) 500 MG TAB PO SCH (17:31)
[2018-10-24 18:36] VITALS: BP 170/95
[2018-10-24 18:58] VITALS: BP 163/97
[2018-10-24] MEDS: OMEPRAZOLE 20 MG CAP PO SCH (20:27)
[2018-10-24] MEDS ORDERED: cloNIDine 0.1 MG TAB PO SCH (21:00)
[2018-10-24 22:51] VITALS: BP 138/88
[2018-10-25] MEDS: diazePAM 10 MG TAB PO PRN (03:03)
[2018-10-25 06:17] VITALS: BP 154/90
--- NOTE | 2018-10-25 07:05 | HPEPDOC ---
General Date of Admission October 24, 2018 at 12:53 Chief Complaint The patient is a 47-year-old male admitted with a reason for visit of Unspecifie d Mood Disorder. Source: Patient, Old records History of Present Illness 47 yo M with PMH of Anxiety, depression, Diabetes, Hypertension, GERD admitted to [facility] for Nonspecified depressive disorder. Patient was outside shooting his gun when his son went to check on him he turned the gun on to himself said had lots of stress in his life his being sick and it was the best way. His son wrestled the gun from him police was called and patient was brought to the ED. No acute medical complaints today. Denies any fevers, chills, weakness, fatigue, TELLEZ, CP, SOB, cough, palpitations, abdominal pain, N/V/D or changes in bowel or bladder habits. Home Medications Scheduled Atenolol (Atenolol) 50 Mg Tab, 50 MG PO DAILY, (Reported) B Cmplx 4/Vit D3/C/Folic/Zinc (Vital-D Rx Tablet) 1 Each Tablet, 1 TAB PO DAILY, (Reported) Folic Acid (Folic Acid) 1 Mg Tab, 1 MG PO DAILY, (Reported) Metformin HCl (Metformin HCl) 500 Mg Tab, 500 MG PO BID, (Reported) Multivitamin (Multivitamins) 1 Each Capsule, 1 CAP PO DAILY, (Reported) Omeprazole (Omeprazole) 20 Mg Cap, 20 MG PO BID, (Reported) Sertraline Hcl (Zoloft) 100 Mg Tab, 100 MG PO DAILY, (Reported) Scheduled PRN Diazepam (Diazepam) 10 Mg Tablet, 10 MG PO TID PRN for ANXIETY/AGITATION, (Reported) Ibuprofen (Ibuprofen) 200 Mg Tab, 600 MG PO Q6H PRN for HEADACHE OR PAIN, (Reported) Allergies Coded Allergies: No Known Allergies (Verified , 09/11/18) Past Medical History Medical History Anxiety, depression, Diabetes, Hypertension, Gerd Surgical History None Family History Mother: , lung cancer Father: , mesothelioma secondary to asbestos exposure Siblings: 6 Alive, diabetes, history of alcohol use Children: Alive, son with history of alcohol use Unexpected deaths due to medical reasons: None. Social History * Smoker: current smoker, greater than 1 pack/day Alcohol: heavy Drugs: denies Resides in: [facility]– [place][Note 2] Marital Status: Kids: 4 Employment: Unemployed Tattoos done unprofessionally: Denies A-FIB/CHADSVASC A-FIB History Current/History of A-Fib/PAF?: No Review of Systems Constitutional: Denies: Chills, Fever, Night Sweats Eyes: Reports: Pain, Other; Denies: Vision change, Eyelid inflammation, Redness ENT: Denies: Head Aches, Ear Pain, Dysphagia Skin: Reports: Bruising; Denies: Rash, Lesions, Breakdown Pulmonary: Denies: Dyspnea, Cough Cardiovascular: Denies: Chest Pain, Palpitations, Orthopnea, Paroxysmal Noc. Dyspnea, Lt Headedness Gastrointestinal: Denies: Nausea, Vomiting, Abdominal Pain, Diarrhea Genitourinary: Denies: Dysuria, Frequency, Incontinence, Retention Musculoskeletal: Reports: Leg Pain Neurological: Denies: Weakness, Numbness, Change in speech, Confusion Physical Examination General Exam: Positive: Alert, Cooperative, No Acute Distress Eye Exam: Positive: PERRLA, Conjunctiva & lids normal, EOMI; Negative: Sclera icteric ENT Exam: Positive: Atraumatic, Mucous membr. moist/pink, Pharynx Normal Neck Exam: Positive: Supple; Negative: JVD, thyromegaly Chest Exam: Positive: Clear to auscultation, Normal air movement Heart Exam: Positive: Rate Normal, Regular Rhythm, Normal S1, Normal S2; Negative: Murmurs, Rubs Abdomen Exam: Positive: Normal bowel sounds, Soft; Negative: Tenderness, Hepatospenomegaly Extremity Exam: Positive: Normal pulses; Negative: Clubbing, Cyanosis, Edema Skin Exam: Positive: Nl turgor and temperature; Negative: Breakdown, Lesion Neuro Exam: Positive: Normal Speech, Strength at 5/5 X4 ext Psych Exam: Positive: Anxiety, Memory Intact, Oriented x 3 Vital Signs Vital Signs Date Time Temp Pulse Resp B/P (MAP) Pulse Ox O2 Delivery O2 Flow Rate FiO2 10/24/18 13:30 98.6 110 18 186/98 (127) 10/24/18 12:48 99 Room Air Laboratory Data Labs 24H Laboratory Tests 2 10/24/18 00:02: Nucleated Red Blood Cells % (auto) 0.0, Immature Platelet Fraction 5.9, Anion Gap 9, Glomerular Filtration Rate > 60.0, Calcium Level 7.8L, Aspartate Amino Transf (AST/SGOT) 79H, Alanine Aminotransferase (ALT/SGPT) 65, Alkaline Phosph atase 101, Total Bilirubin 0.5, Direct Bilirubin 0.2, Total Protein 7.9, Albumin 3.8, Albumin/Globulin Ratio 0.93L, Thyroid Stimulating Hormone (TSH) 0.644, Salicylates Level 2.4L, Urine Amphetamines Screen NEGATIVE, Urine Benzodiazepines Screen POSITIVEH, Urine Opiates Screen NEGATIVE, Urine Methadone Screen NEGATIVE, Acetaminophen Level < 2.0L, Urine Barbiturates Screen NEGATIVE, Urine Phencyclidine Screen NEGATIVE, Urine Cocaine Metabolite Screen NEGATIVE, Urine Cannabinoids Screen NEGATIVE, Ethyl Alcohol Level 0.295H CBC/BMP Laboratory Tests 10/24/18 00:02 Red Blood Count 5.11, Mean Corpuscular Volume 85.9, Mean Corpuscular Hemoglobin 28.2, Mean Corpuscular Hemoglobin Concent 32.8, Red Cell Distribution Width 16.1 H Assessment/Plan 47 yo M with PMH of Anxiety, depression, Diabetes, Hypertension, GERD admitted to [facility] for Nonspecified depressive disorder. Patient was outside shooting his gun when his son went to check on him he turned the gun on to himself said had lots of stress in his life his being sick and it was the best way. His son wrestled the gun from him police was called and patient was brought to the ED. Patient is being seen for medical history and physical. Psych. Plan per Psychiatry. Nicotine dependence. Patch available. DM. last A1c 7.6 Consistent carbohydrate diet. Continue metformin 500 mg by mouth twice a day. Substance abuse alcohol Management per psychiatry. Continue with MVI, Thiamine, and Folic Acid supplementation. on CIWA protocol Hypertension. Continue atenolol 50 mg by mouth daily. If Bp not controlled will add clonidine GERD. Continue omeprazole. mouth daily. DVT prophylaxis: ambulation Plan / VTE VTE Prophylaxis Ordered?: Yes CAMERON CHEN MD October 24, 2018 14:51
[2018-10-25] MEDS: THIAMINE 100 MG TAB PO SCH (08:07)
[2018-10-25 08:08] VITALS: BP 154/90
[2018-10-25] MEDS: NICOTINE 21MG/24HR 1 EA TRANSDERMAL TD SCH (08:08)
[2018-10-25] MEDS: cloNIDine 0.1 MG TAB PO SCH (08:08)
[2018-10-25] MEDS: OMEPRAZOLE 20 MG CAP PO SCH (08:08)
[2018-10-25] MEDS: FOLIC ACID 1 MG TAB PO SCH (08:08)
[2018-10-25] MEDS: metFORMIN (GLUCOPHAGE) 500 MG TAB PO SCH (08:08)
[2018-10-25] MEDS ORDERED: MULTIVITAMINS/MINERALS THERAP 1 TAB PO SCH (09:00)
[2018-10-25] MEDS ORDERED: SERTRALINE 100 MG TAB PO SCH (09:00)
[2018-10-25] MEDS ORDERED: ATENOLOL 50 MG TAB PO SCH (09:00)
[2018-10-25] MEDS ORDERED: NALTREXONE 50 MG TAB PO SCH (09:00)
[2018-10-25 09:16] VITALS: BP 148/82
[2018-10-25 09:17] VITALS: BP 148/82
--- NOTE | 2018-10-25 11:17 | MHHPEPDOC ---
General Date Of Admission: October 24, 2018 Legal Status: 9.39 Chief Complaint "I was trying to shoot at a skunk in my shed". History of Present Illness HISTORY OF THE PRESENT ILLNESS: Patient is a 47 -year-old , male, with a psych history of depression, anxiety, alcohol abuse, last d/c [facility] for suspected SI and alcohol intoxication who was brought to ED by police under 9.41 after pt's adult son called 911 b/c pt outside shooting a gun while heavily intoxicated and pointed the gun at himself when the son came out and see him. Per ED, son found pt on ground pointing a gun at himself (didn't make SI comment though) and pt son wrestled it from him to take away. Per ED when pt there he stated he was going thru a lot of stress as his gpjzcd-ra-yto is on hospice care in his home and he "can't take all the moaning and groaning" so he self medicates with alcohol calling it his "fix for now." Pt stated per ED that there's a skunk in his shed and he can't take the smell so decided to load his shotgun and shoot it missing several times as he was heavily intoxicated so pt stated he gave up, unloaded it, was trying to put it away while standing on a chair and fell which is why his son found him on the ground. Denied he was trying to kill himself. Per pt's son in the ED, pt drinks to intoxication daily and his BAL on admission was 0.295 Psychiatric Review of Systems Depression (2 or more weeks): depressed mood, insomnia/hypersomnia (insomnia), difficulty concentrating, suicidal thoughts Suzan (4 or more days of): denies PTSD: denies Anxiety: situational anxiety, stressor related anxiety Anxiety/ 6 months or more of: restlessness, keyed up, difficulty concentrating, irritability, sleep disturbance Past Psychiatric History Previous Psychiatric Diagnosis: depression, generalized anxiety d/o, alcohol use disorder Previous Psychiatric Admissions: [facility] for depression, alcohol abuse, SI 09/12/18 Suicide Attempts: Denies Psychiatric Follow-up: referred to [facility] and creto upon d/c [facility] 09/14/18 Psychiatric medications: sertraline, abilify (not taking currently), trazodone prn(not taking currently), valium prn (last d/c [facility] 09/14/18) Past Medical History Medical Problems HTN, GERD and DM2 Head Injury: No Seizures: No Hospitalizations: Yes Surgeries: No Family Medical/Psychiatric HX Medical Problems Both parents . DM 2 in brother Edgardo, father, mother, maternal grandmother. HTN in father, paternal grandfather, brothers. Mother Sclc. Family hx of GERD Psychiatric Disorders: Yes Addiction: Yes (Reports 2 sisters, oldest brother had alcoholism) Addiction History nicotine, alcohol (bal 0.295. drinks to intoxication daily), other (benzodiazepines (valium prescribed), utox positive) Social History Childhood: Grew up in [place], [place], parents were . Grew up with 2 sisters and 3 brothers, he was second to youngest. Father 3 years ago due to mesothelioma, now receiving benefits (main source of income). . 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 Receives benefits as stated above Social Support: His family Legal: 1 DWI, 10 years ago. Marital: , 18yrs. 2 sons (24y/o from first marriage, 20 y/o), 1 daughter (16 y/o daughter). Has a "love child" from former girlfriend when 17, she's [place], not in contact anymore Mental Status Examination General Appearance: disheveled, appears stated age, hospital scubs/clothing Build: average Demeanor: very figety, other (unreliable) Eye Contact: average Activity: anxious Behavior: cooperative, restless, other (unreliable) Speech: clear, spontaneous, reg/rate,rhythm,volume Mood: depressed, anxious Mood "I'm fine" Affect: constricted, appropriate, incongruent, anxious Thought Process: logical/linear, intact Thought Content (Delusions): none reported, denies SI, HI, AVH Thought Content (Other): none reported, appropriate Thought Content (Aggressive): none reported Perception (Hallucinations): none reported Perception (Other): none reported Cognition (Impairment of): none reported Cognition(Intelligence Est.): average Oriented: Awake, Alert, Oriented times three Insight: poor Judgment: Poor Psychosis: Denies Diagnoses Depression Unspecified R/O adjustment d/o with depression and anxiety Generalized anxiety disorder Alcohol use disorder, chronic, severe Benzodiazepine use disorder A-FIB/CHADSVASC A-FIB History Current/History of A-Fib/PAF?: No Current Oral Anticoagulant The: No Treatment Treatment ordered: NONE Reason Anticoagulant not given: Not indicated/Fcewb5tzui Assessment Pt seen and states he there was a "skunk getting into my trash so I got the 12 gauge to shoot it and missed and went to put it away on a shelf and fell with a deer head on me." States he chugged 12 beers prior to grabbing his gun. States he doesn't want harm himself or others. States he relapsed on alcohol over [facility] after he had been attacked by a pit bull. Also discussed stress of arklwj-nj-dgc on hospice who could pass away at any time and wanting to be there to support his . States "I messed up" and that he's going to stop drinking all together. Advised that that is not particularly safe due to risk of withdrawal and withdrawal seizure with possible . Also pt taking valium which he denies taking that day but advised utox positive so he was taking it and that it acts very similarly in the brain as alcohol as is usually very addictive in presence a history or current alcohol use so recommend d/c of that as well increasing his risk of withdrawal if not detoxed. Pt states he just wants to go home and again reviewed safety risks and concern should he pt discharged without complete detox. States he wants to start Vivitrol for alcohol abuse and advised the hospital doesn't have it available here but can start naltrexone daily for alcohol urge which he's agreeable to, risks benefits discussed. Denies SI/HI, hallucinations, delusions. Denies alcohol withdrawal symptom, but hands appear slightly tremulous which he tries to deny in hopes he can be discharged soon. Initial Treatment Plan 1. Patient was admitted on a 9.39 status. 2. Complete history was obtained. 3. With patients permission, family will be contacted and database will be expanded. 4. Patients medication regimen will be reviewed and changed accordingly. 5. Patient will be provided with protected environment. 6. Patient will be treated with individual, group, and milieu therapies. 7. Patient will receive supportive psych-education. 8. Discharge planning will commence immediately. 9. Outpatient follow-up treatment will be strongly recommended. 10. The initial treatment plan will focus initially on: * Depression. * Risk for suicide. * Substance abuse. 11. [facility] protocol with available ativan 12. d/c valium, continue zoloft 100mg daily, start vistaril 50mg q6hr prn anxiety and trazodone 50mg qhs prn insomnia ESTIMATED LENGTH OF STAY: 5-7 DAYS. TIME SPENT COUNSELING AND COORDINATING INITIAL CARE: 60 minutes. Vital Signs Vital Signs Date Time Temp Pulse Resp B/P (MAP) Pulse Ox O2 Delivery O2 Flow Rate FiO2 10/25/18 09:16 78 148/82 10/25/18 07:41 Room Air 10/25/18 06:17 99.3 14 10/24/18 12:48 99 Laboratory Data 24H Labs Laboratory Tests 2 10/24/18 17:26: Bedside Glucose (Misc Panel) 142H 10/25/18 06:11: Bedside Glucose (Misc Panel) 162H Medications Scheduled Atenolol (Atenolol) 50 Mg Tab, 50 MG PO DAILY, (Reported) B Cmplx 4/Vit D3/C/Folic/Zinc (Vital-D Rx Tablet) 1 Each Tablet, 1 TAB PO DAILY, (Reported) Folic Acid (Folic Acid) 1 Mg Tab, 1 MG PO DAILY, (Reported) Metformin HCl (Metformin HCl) 500 Mg Tab, 500 MG PO BID, (Reported) Multivitamin (Multivitamins) 1 Each Capsule, 1 CAP PO DAILY, (Reported) Omeprazole (Omeprazole) 20 Mg Cap, 20 MG PO BID, (Reported) Sertraline Hcl (Zoloft) 100 Mg Tab, 100 MG PO DAILY, (Reported) Scheduled PRN Diazepam (Diazepam) 10 Mg Tablet, 10 MG PO TID PRN for ANXIETY/AGITATION, (Reported) Ibuprofen (Ibuprofen) 200 Mg Tab, 600 MG PO Q6H PRN for HEADACHE OR PAIN, (Reported) Allergies Coded Allergies: No Known Allergies (Verified , 09/11/18) TESS MENCHACA DO October 25, 2018 10:17 am
[2018-10-25] MEDS ORDERED: hydrOXYzine 50 MG TAB PO PRN (11:30)
--- NOTE | 2018-10-26 09:26 | MHDSPDOC ---
[facility] Discharge Summary Discharge Summary DATE OF ADMISSION: October 24, 2018 at 12:53 DATE OF DISCHARGE: October 25, 2018 at 15:30 DISCHARGE DIAGNOSES: Depression Unspecified R/O adjustment d/o with depression and anxiety Generalized anxiety disorder Alcohol use disorder, chronic, severe Benzodiazepine use disorder REASON FOR ADMISSION: Patient is a 47 -year-old , male, with a psych history of depression, anxiety, alcohol abuse, last d/c [facility] for suspected SI and alcohol intoxication who was brought to ED by police under 9.41 after pt's adult son called 911 b/c pt outside shooting a gun while heavily intoxicated and pointed the gun at himself when the son came out and see him. Per ED, son found pt on ground pointing a gun at himself (didn't make SI comment though) and pt son wrestled it from him to take away. Per ED when pt there he stated he was going thru a lot of stress as his teajaz-ck-qfp is on hospice care in his home and he "can't take all the moaning and groaning" so he self medicates with alcohol calling it his "fix for now." Pt stated per ED that there's a skunk in his shed and he can't take the smell so decided to load his shotgun and shoot it missing several times as he was heavily intoxicated so pt stated he gave up, unloaded it, was trying to put it away while standing on a chair and fell which is why his son found him on the ground. Denied he was trying to kill himself. Per pt's son in the ED, pt drinks to intoxication daily and his BAL on admission was 0.295. CONSULTANTS INVOLVED: none TREATMENT AND PROGRESS ON THE UNIT : Pt was admitted to [facility], seen for psychiatric assessment and restarted on his outpatient medication zoloft 100mg daily. He was provided vistaril 25mg q6hr prn anxiety and trazodone 50mg qhs prn insomnia. Pt's called on 2nd day of admission stating pt's dyeiyeb-ix-dqq had a massive heart attack, hospitalized at [facility] in [place], in critical condition possible asking for pt to be discharged in case the [id number]-[id number] passes away. He attended groups daily during his short stay. His symptoms improved with treatment. On day of discharge he denied depression, anxiety, insomnia, SI/HI, hallucinations, delusions. Talked to pt about risk of withdrawal side effects if stops alcohol and benzodiazepines cold turkey so he was discharged with the continuation of his out pt valium to be managed at [facility]. He was discharged home after family meeting with his with follow-up at [facility] and [facility]. He felt safe for discharge. DISCHARGE ASSESSMENT: Denies depression, anxiety, insomnia, SI/HI, hallucinations, delusions. Looking forward to going home with his and supporting her with the recent hospitalization of her brother. Feels safe to be discharged with his . MENTAL STATUS EXAMINATION ON DISCHARGE: General Appearance: disheveled, appears stated age, hospital scrubs/clothing Build: average Demeanor: cooperative Eye Contact: average Activity: anxious Behavior: cooperative, restless Speech: clear, spontaneous, reg/rate,rhythm,volume Mood: euthymic, anxious Mood "I'm fine" Affect: euthymic, appropriate, anxious Thought Process: logical/linear, intact Thought Content (Delusions): none reported, denies SI, HI, AVH Thought Content (Other): none reported, appropriate Thought Content (Aggressive): none reported Perception (Hallucinations): none reported Perception (Other): none reported Cognition (Impairment of): none reported Cognition(Intelligence Est.): average Oriented: Awake, Alert, Oriented times three Insight: fair Judgment: fair Psychosis: Denies MEDICATIONS ON DISCHARGE: (continued from outpatient) zoloft 100mg daily valium 10mg tid prn anxiety PLAN/FOLLOWUP ARRANGEMENTS: D/c home with followed-up at [facility] and [facility]. The amount of time spent in the coordination of care for this patient was approximately 30 minutes. Vital Signs/I&Os Vital Signs Date Time Temp Pulse Resp B/P (MAP) Pulse Ox O2 Delivery O2 Flow Rate FiO2 10/25/18 09:16 78 148/82 10/25/18 07:41 Room Air 10/25/18 06:17 99.3 14 10/24/18 12:48 99 Medications Scheduled Atenolol (Atenolol) 50 Mg Tab, 50 MG PO DAILY, (Reported) B Cmplx 4/Vit D3/C/Folic/Zinc (Vital-D Rx Tablet) 1 Each Tablet, 1 TAB PO DAILY, (Reported) Folic Acid (Folic Acid) 1 Mg Tab, 1 MG PO DAILY, (Reported) Metformin HCl (Metformin HCl) 500 Mg Tab, 500 MG PO BID, (Reported) Multivitamin (Multivitamins) 1 Each Capsule, 1 CAP PO DAILY, (Reported) Omeprazole (Omeprazole) 20 Mg Cap, 20 MG PO BID, (Reported) Sertraline Hcl (Zoloft) 100 Mg Tab, 100 MG PO DAILY, (Reported) Scheduled PRN Diazepam (Diazepam) 10 Mg Tablet, 10 MG PO TID PRN for ANXIETY/AGITATION, (Reported) Ibuprofen (Ibuprofen) 200 Mg Tab, 600 MG PO Q6H PRN for HEADACHE OR PAIN, (Reported) Allergies Coded Allergies: No Known Allergies (Verified , 09/11/18) TESS MENCHACA DO October 26, 2018 09:26
== END 2018-10-25 15:30 | disposition home or self-care (01) | DRG 755 ==
LOC: M ED 23:49 → M ED INP 10-24 12:53 → M PSY 10-24 13:24
PROVIDERS: ADMIT Psychiatry & Neurology Psychiatry; ATTEND Psychiatry & Neurology Psychiatry
DX: F43.25 Adjustment disorder with mixed disturbance of emotions and conduct (principal); I10 Essential (primary) hypertension; R45.851 Suicidal ideations; F41.1 Generalized anxiety disorder; F10.10 Alcohol abuse, uncomplicated; F13.90 Sedative, hypnotic, or anxiolytic use, unspecified, uncomplicated; Z79.899 Other long term (current) drug therapy; E11.9 Type 2 diabetes mellitus without complications; K21.9 Gastro-esophageal reflux disease without esophagitis; F17.200 Nicotine dependence, unspecified, uncomplicated

== ENCOUNTER 2019-01-07 07:18 | Emergency (ER) | payer MEDICAID, OTHER ==
[~2019-01-07] VITALS: Ht 177.8 cm; Wt 90.9 kg
[~2019-01-07 07:18] MED LIST changes: +MULTCAP PO; +OMEP20CA4 PO; +TRAZ1TAB10 PO; -TRAZO50TA PO; +VITATAB47 PO
[2019-01-07] MEDS ORDERED: NS 1,000 ML IV ONE (07:30)
[2019-01-07] MEDS ORDERED: MULTIVITAMIN -ADULT INJECTION 10 ML, THIAMINE INJection 100 MG, FOLIC ACID 1 MG in NS 1... IV ONE (07:45)
--- NOTE | 2019-01-07 08:00 | REP ---
Portable chest, 07:39 a.m., the patient upright: Comparison is 02/12/2011. The lung mann are clear. The cardiac size is normal. The lillian, mediastinum, and skeletal structures are unremarkable. Impression: Negative portable chest. There is no interval change. Electronically Signed by Edy Muñoz MD 01/07/2019 07:52 A
[2019-01-07 08:39] LABS: BASO % 0.3 % (0.0-1.0); EOS # 0.1 10^3/uL (0.0-0.50); HEMATOCRIT 42.7 % (42.0-52.0); HEMOGLOBIN 14.2 g/dl (13.5-17.5); LYMPH # 2.2 10^3/uL (1.5-4.5); LYMPH % 28.8 % (24.0-44.0); MEAN CORPUSCULAR HEMOGLOBIN 29.1 pg (27.0-33.0); MEAN CORPUSCULAR HGB CONC 33.3 g/dl (32.0-36.5); MEAN CORPUSCULAR VOLUME 87.5 fl (80.0-96.0); MONO # 0.6 10^3/uL (0.0-0.8); MONO % 8.1 % (0.0-5.0); NEUTROPHILS # 4.7 10^3/uL (1.8-7.7); NEUTROPHILS % 61.4 % (36.0-66.0); RED BLOOD COUNT 4.88 10^6/uL (4.30-6.10); WHITE BLOOD COUNT 7.6 10^3/uL (4.0-10.0)
[2019-01-07 08:40] LABS: PLATELET COUNT, AUTOMATED 67 10^3/uL (150-450)
[2019-01-07] MEDS ORDERED: NICOTINE 14 MG/24 HR TRANSDERMAL TD ONE (09:00)
[2019-01-07 09:22] LABS: ACETAMINOPHEN LEVEL < 2.0 UG/ML (10.0-30.0); ALBUMIN 3.6 GM/DL (3.2-5.2); ALT/SGPT 61 U/L (12-78); BILIRUBIN,DIRECT 0.2 MG/DL (0.0-0.2); BILIRUBIN,TOTAL 0.6 MG/DL (0.2-1.0); BLOOD UREA NITROGEN 5 MG/DL (7-18); CALCIUM LEVEL 7.7 MG/DL (8.5-10.1); CARBON DIOXIDE LEVEL 25 MEQ/L (21-32); CHLORIDE LEVEL 102 MEQ/L (98-107); CK-MB VALUE MASS 2.8 NG/ML (<3.6); CPK CREATINE PHOSPHOKINASE 284 U/L (39-308); CREATININE FOR GFR 0.73 MG/DL (0.70-1.30); ETHYL ALCOHOL (ETHANOL) 0.287 % (0.000-0.010); GLOMERULAR FILTRATION RATE > 60.0 (>56); GLUCOSE, FASTING 194 MG/DL (70-100); MB/CK RELATIVE INDEX 0.99 (< OR =4); POTASSIUM SERUM 3.6 MEQ/L (3.5-5.1); SALICYLATE LEVEL < 1.7 MG/DL (5.0-30.0); SODIUM LEVEL 137 MEQ/L (136-145); THYROID STIMULATING HORMONE 0.508 uIU/ML (0.358-3.740); TOTAL PROTEIN 8.5 GM/DL (6.4-8.2); TROPONIN I < 0.02 NG/ML (< 0.10)
[2019-01-07 11:21] LABS: AMPHETAMINES LEVEL URINE NEGATIVE (NEGATIVE); BARBITURATES URINE NEGATIVE (NEGATIVE); BENZODIAZEPINES URINE POSITIVE (NEGATIVE); CANNABINOIDS URINE NEGATIVE (NEGATIVE); COCAINE METABOLITE URINE NEGATIVE (NEGATIVE); METHADONE URINE NEGATIVE (NEGATIVE); OPIATES URINE NEGATIVE (NEGATIVE); PHENCYCLIDINE URINE NEGATIVE (NEGATIVE)
[2019-01-07 11:30] VITALS: BP 145/95
--- NOTE | 2019-01-07 19:47 | ECGEPIP ---
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
== END 2019-01-07 12:03 | disposition home or self-care (01) ==
LOC: M ED 07:18 → EDBD 07:18 → M ED 12:03
DX: F10.129 Alcohol abuse with intoxication, unspecified (principal); E11.9 Type 2 diabetes mellitus without complications; I10 Essential (primary) hypertension; F33.9 Major depressive disorder, recurrent, unspecified; F41.9 Anxiety disorder, unspecified; K21.9 Gastro-esophageal reflux disease without esophagitis; Z79.899 Other long term (current) drug therapy; Z79.84 Long term (current) use of oral hypoglycemic drugs; F17.210 Nicotine dependence, cigarettes, uncomplicated
CPT/HCPCS: 36415; 71045; 80048; 80076; 80307; 82550; 82553; 83605; 84443; 85025; 85049; 85055; 93005; 93041; 94760; 99285; G0480; J3411

== ENCOUNTER 2019-07-13 17:41 | Emergency (ER) | payer MEDICAID, OTHER ==
[~2019-07-13] VITALS: Ht 180.3 cm; Wt 89.0 kg
[~2019-07-13 17:41] MED LIST changes: +OMEP1CAP73 PO; -OMEP20CA4 PO
[2019-07-13 18:18] LABS: BASO % 0.3 % (0.0-1.0); EOS % 0.3 % (0.0-3.0); HEMATOCRIT 44.1 % (42.0-52.0); HEMOGLOBIN 14.1 g/dl (13.5-17.5); LYMPH # 2.6 10^3/uL (1.5-5.0); LYMPH % 40.6 % (24.0-44.0); MEAN CORPUSCULAR HEMOGLOBIN 26.9 pg (27.0-33.0); MONO # 0.4 10^3/uL (0.0-0.8); MONO % 6.9 % (0.0-5.0); NEUTROPHILS # 3.3 10^3/uL (1.5-8.5); NEUTROPHILS % 51.6 % (36.0-66.0); RED BLOOD COUNT 5.25 10^6/uL (4.30-6.10); WHITE BLOOD COUNT 6.4 10^3/uL (4.0-10.0)
[2019-07-13] MEDS ORDERED: GI COCKTAIL 50ML BTL(HYOSCYAMINE/MAALOX/LIDOCAINE VISCOUS)(1:3:1) PO ONE (18:30)
[2019-07-13 18:34] LABS: PLATELET COUNT, AUTOMATED 41 10^3/uL (150-450)
[2019-07-13 19:01] LABS: INR 1.15; PROTHROMBIN TIME 14.4 SECONDS (11.8-14.0)
[2019-07-13 19:02] LABS: PARTIAL THROMBOPLASTIN TIME 35.4 SECONDS (25.0-38.4)
[2019-07-13 19:12] LABS: BLOOD UREA NITROGEN 4 MG/DL (7-18); CALCIUM LEVEL 8.1 MG/DL (8.5-10.1); CARBON DIOXIDE LEVEL 24 MEQ/L (21-32); CHLORIDE LEVEL 97 MEQ/L (98-107); CPK CREATINE PHOSPHOKINASE 357 U/L (39-308); CREATININE FOR GFR 0.82 MG/DL (0.70-1.30); ETHYL ALCOHOL (ETHANOL) 0.423 % (0.000-0.010); FREE T4 1.13 NG/DL (0.76-1.46); GLOMERULAR FILTRATION RATE > 60.0 (>56); GLUCOSE, FASTING 212 MG/DL (70-100); LIPASE 512 U/L (73-393); MB/CK RELATIVE INDEX 0.84 (< OR =4); POTASSIUM SERUM 3.5 MEQ/L (3.5-5.1); SODIUM LEVEL 132 MEQ/L (136-145); THYROID STIMULATING HORMONE 0.482 uIU/ML (0.358-3.740); TROPONIN I < 0.02 NG/ML (< 0.10)
[2019-07-13] MEDS ORDERED: THIAMINE 100 MG TAB PO ONE (19:45)
[2019-07-13 20:02] VITALS: BP 151/99
--- NOTE | 2019-07-14 06:39 | ECGEPIP ---
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
--- NOTE | 2019-07-14 08:55 | REP ---
AP PORTABLE CHEST: 07/13/2019. Comparison: 01/07/2019. Clinical history: Chest pain. Findings: Lungs are well inflated without effusion, infiltrate, atelectasis or mass. Heart, mediastinal and hilar contours are normal. Aorta and airway are intact. Bony thorax shows no focal lesion. No free air under the diaphragm. Impression: 1. Negative portable chest. Electronically Signed by Adryan Richardson MD 07/14/2019 08:14 P
== END 2019-07-13 20:04 | disposition home or self-care (01) ==
LOC: M ED 17:41
DX: K29.20 Alcoholic gastritis without bleeding (principal); F10.220 Alcohol dependence with intoxication, uncomplicated; F17.200 Nicotine dependence, unspecified, uncomplicated; E11.9 Type 2 diabetes mellitus without complications; I10 Essential (primary) hypertension; Z79.84 Long term (current) use of oral hypoglycemic drugs; Z79.899 Other long term (current) drug therapy
CPT/HCPCS: 71045; 80048; 82550; 82553; 83690; 84439; 84443; 85025; 85049; 85055; 85610; 85730; 93005; 93041; 94760; 99285; G0480

== ENCOUNTER → 2020-01-29 | Outpatient (REF) | payer OTHER, MEDICAID ==
[2020-02-29 12:00] LABS: HEMATOCRIT 41.1 % (42.0-52.0); MEAN CORPUSCULAR HEMOGLOBIN 26.4 pg (27.0-33.0); MEAN CORPUSCULAR HGB CONC 31.6 g/dl (32.0-36.5); MEAN CORPUSCULAR VOLUME 83.5 fl (80.0-96.0); PLATELET COUNT, AUTOMATED 170 10^3/uL (150-450); RED BLOOD COUNT 4.92 10^6/uL (4.30-6.10); WHITE BLOOD COUNT 7.7 10^3/uL (4.0-10.0)
[2020-03-13 21:21] LABS: ALT/SGPT 27 U/L (12-78); BILIRUBIN,TOTAL 0.4 MG/DL (0.2-1.0); BLOOD UREA NITROGEN 9 MG/DL (7-18); CARBON DIOXIDE LEVEL 27 MEQ/L (21-32); CHLORIDE LEVEL 102 MEQ/L (98-107); CHOLESTEROL LEVEL 179 MG/DL (<200); CHOLESTEROL RISK RATIO 5.966 (<5); FOLATE > 24.0 NG/ML; GLOMERULAR FILTRATION RATE > 60.0 (>56); GLUCOSE, FASTING 130 MG/DL (70-100); HDL CHOLESTEROL 30 MG/DL (>40); LDL CHOLESTEROL 124 MG/DL (<100); NON-HDL-C 149 MG/DL; POTASSIUM SERUM 4.6 MEQ/L (3.5-5.1); SODIUM LEVEL 135 MEQ/L (136-145); TRIGLYCERIDES LEVEL 127 MG/DL (<150); VITAMIN B12 LEVEL 527 PG/ML
[2020-03-13 21:22] LABS: HEMOGLOBIN A1c 6.9 %
== END ==
LOC: M LABWUC 09:29
PROVIDERS: ATTEND Physician Assistant
DX: E11.9 Type 2 diabetes mellitus without complications (principal); Z13.220 Encounter for screening for lipoid disorders; E53.8 Deficiency of other specified B group vitamins

== ENCOUNTER 2020-09-22 14:06 | Emergency (ER) | payer MEDICAID, OTHER ==
[~2020-09-22] VITALS: Ht 177.8 cm; Wt 84.1 kg
[~2020-09-22 14:06] MED LIST changes: +LISI10TA22 PO; -LISI10TA4 PO
[2020-09-22] MEDS ORDERED: NS 1,000 ML IV SCH (14:16)
[2020-09-22] MEDS ORDERED: THIAMINE 200MG/2ML VIAL (J3411 PER 100MG) IM ONE (14:20)
[2020-09-22 14:35] VITALS: BP 122/72
--- NOTE | 2020-09-22 14:43 | REP ---
INDICATION: CHEST PAIN. COMPARISON: 07/13/2019. TECHNIQUE: SINGLE PORTABLE AP VIEW OF THE CHEST WAS PERFORMED. FINDINGS: THERE IS NO ACUTE INFILTRATE OR PULMONARY EDEMA. LUNGS ARE CLEAR. HEART IS NOT SIGNIFICANTLY ENLARGED. MEDIASTINAL SILHOUETTE IS UNREMARKABLE. THE VISUALIZED OSSEOUS STRUCTURES ARE INTACT. IMPRESSION: NO ACUTE PULMONARY DISEASE. <Electronically signed by Edy Kay > 09/22/20 [id number]
[2020-09-22 15:06] LABS: BASO % 0.2 % (0.0-1.0); EOS % 0.2 % (0.0-3.0); HEMATOCRIT 36.2 % (42.0-52.0); HEMOGLOBIN 11.9 g/dl (13.5-17.5); LYMPH # 1.4 10^3/uL (1.5-5.0); LYMPH % 22.5 % (24.0-44.0); MEAN CORPUSCULAR HEMOGLOBIN 26.8 pg (27.0-33.0); MEAN CORPUSCULAR HGB CONC 32.9 g/dl (32.0-36.5); MEAN CORPUSCULAR VOLUME 81.5 fl (80.0-96.0); MONO # 0.5 10^3/uL (0.0-0.8); MONO % 7.7 % (2.0-8.0); NEUTROPHILS # 4.3 10^3/uL (1.5-8.5); NEUTROPHILS % 69.1 % (36.0-66.0); RED BLOOD COUNT 4.44 10^6/uL (4.30-6.10); WHITE BLOOD COUNT 6.1 10^3/uL (4.0-10.0)
[2020-09-22] MEDS ORDERED: GI COCKTAIL 50ML BTL(HYOSCYAMINE/MAALOX/LIDOCAINE VISCOUS)(1:3:1) PO ONE (15:30)
[2020-09-22 15:37] LABS: ALBUMIN 3.5 GM/DL (3.2-5.2); ALT/SGPT 78 U/L (12-78); BILIRUBIN,DIRECT < 0.1 MG/DL (0.0-0.2); BILIRUBIN,TOTAL 0.4 MG/DL (0.2-1.0); BLOOD UREA NITROGEN 4 MG/DL (7-18); CALCIUM LEVEL 8.1 MG/DL (8.5-10.1); CARBON DIOXIDE LEVEL 25 MEQ/L (21-32); CHLORIDE LEVEL 96 MEQ/L (98-107); CREATININE FOR GFR 0.64 MG/DL (0.70-1.30); GLOMERULAR FILTRATION RATE > 60.0 (>56); GLUCOSE, FASTING 162 MG/DL (70-100); LIPASE 251 U/L (73-393); POTASSIUM SERUM 4.5 MEQ/L (3.5-5.1); SODIUM LEVEL 129 MEQ/L (136-145); TOTAL PROTEIN 7.7 GM/DL (6.4-8.2)
[2020-09-22 15:42] LABS: PLATELET COUNT, AUTOMATED 49 10^3/uL (150-450)
--- NOTE | 2020-09-22 18:01 | ECGEPIP ---
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
== END 2020-09-22 15:45 | disposition left against medical advice (07) ==
LOC: EDBD 14:06 → M ED 14:06
DX: F10.10 Alcohol abuse, uncomplicated (principal); R07.9 Chest pain, unspecified

== ENCOUNTER 2020-09-24 09:49 | Emergency (ER) | payer OTHER ==
[~2020-09-24] VITALS: Ht 177.8 cm; Wt 185.0 kg
[2020-09-24] MEDS ORDERED: PENT400T22 (10:01)
[2020-09-24] MEDS ORDERED: LISI10TA22 (10:01)
[2020-09-24] MEDS ORDERED: DIAZ5TAB (10:01)
[2020-09-24 10:36] LABS: HEMOGLOBIN 12.9 g/dl (13.5-17.5); MEAN CORPUSCULAR HEMOGLOBIN 26.9 pg (27.0-33.0); MEAN CORPUSCULAR HGB CONC 33.1 g/dl (32.0-36.5); MEAN CORPUSCULAR VOLUME 81.3 fl (80.0-96.0)
[2020-09-24 11:01] LABS: ALBUMIN 3.7 GM/DL (3.2-5.2); ALT/SGPT 91 U/L (12-78); BILIRUBIN,TOTAL 0.5 MG/DL (0.2-1.0); BLOOD UREA NITROGEN 4 MG/DL (7-18); CALCIUM LEVEL 8.9 MG/DL (8.5-10.1); CARBON DIOXIDE LEVEL 24 MEQ/L (21-32); CHLORIDE LEVEL 97 MEQ/L (98-107); CREATININE FOR GFR 0.64 MG/DL (0.70-1.30); GLOMERULAR FILTRATION RATE > 60.0 (>56); GLUCOSE, FASTING 200 MG/DL (70-100); MAGNESIUM LEVEL 2.1 MG/DL (1.8-2.4); POTASSIUM SERUM 3.8 MEQ/L (3.5-5.1); SODIUM LEVEL 132 MEQ/L (136-145); TOTAL PROTEIN 8.4 GM/DL (6.4-8.2)
[2020-09-24 11:20] LABS: PLATELET COUNT, AUTOMATED 60 10^3/uL (150-450)
[2020-09-24] MEDS ORDERED: OXAZ15CA4 PO (12:55)
[2020-09-24 13:00] VITALS: BP 148/94
== END 2020-09-24 13:06 | disposition home or self-care (01) ==
LOC: M ED 09:49
DX: F10.129 Alcohol abuse with intoxication, unspecified (principal); F17.200 Nicotine dependence, unspecified, uncomplicated; E11.9 Type 2 diabetes mellitus without complications; I10 Essential (primary) hypertension; Z79.899 Other long term (current) drug therapy

== ENCOUNTER → 2021-01-08 | Outpatient (CLI) | payer OTHER ==
[~2021-01-08] MED LIST changes: +DIAZ5TAB; +LISI10TA22; +OXAZ15CA4 PO; +PENT400T22
[2021-01-08 11:49] LABS: BASO % 0.4 % (0.0-1.0); EOS # 0.1 10^3/uL (0.0-0.5); EOS % 1.5 % (0.0-3.0); HEMATOCRIT 41.1 % (42.0-52.0); HEMOGLOBIN 13.1 g/dl (13.5-17.5); LYMPH # 2.6 10^3/uL (1.5-5.0); MEAN CORPUSCULAR HGB CONC 31.9 g/dl (32.0-36.5); MEAN CORPUSCULAR VOLUME 81.7 fl (80.0-96.0); MONO # 0.6 10^3/uL (0.0-0.8); MONO % 7.6 % (2.0-8.0); NEUTROPHILS # 4.2 10^3/uL (1.5-8.5); NEUTROPHILS % 56.1 % (36.0-66.0); PLATELET COUNT, AUTOMATED 172 10^3/uL (150-450); RED BLOOD COUNT 5.03 10^6/uL (4.30-6.10); WHITE BLOOD COUNT 7.5 10^3/uL (4.0-10.0)
[2021-01-08 12:12] LABS: HEMOGLOBIN A1c 7.2 %
[2021-01-08 12:23] LABS: ALBUMIN 3.9 GM/DL (3.2-5.2); ALT/SGPT 29 U/L (12-78); BILIRUBIN,TOTAL 0.4 MG/DL (0.2-1.0); BLOOD UREA NITROGEN 7 MG/DL (7-18); CALCIUM LEVEL 8.9 MG/DL (8.5-10.1); CARBON DIOXIDE LEVEL 27 MEQ/L (21-32); CHLORIDE LEVEL 101 MEQ/L (98-107); CHOLESTEROL LEVEL 202 MG/DL (<200); CHOLESTEROL RISK RATIO 6.312 (<5); CREATININE FOR GFR 0.88 MG/DL (0.70-1.30); FREE T4 1.02 NG/DL (0.76-1.46); GLOMERULAR FILTRATION RATE > 60.0 (>56); GLUCOSE, FASTING 155 MG/DL (70-100); HDL CHOLESTEROL 32 MG/DL (>40); LDL CHOLESTEROL 139 MG/DL (<100); NON-HDL-C 170 MG/DL; POTASSIUM SERUM 4.5 MEQ/L (3.5-5.1); SODIUM LEVEL 136 MEQ/L (136-145); TESTOSTERONE 596 NG/DL (241-827); THYROID STIMULATING HORMONE 0.656 uIU/ML (0.358-3.740); TRIGLYCERIDES LEVEL 155 MG/DL (<150)
== END ==
LOC: M WUC 08:47
PROVIDERS: ATTEND Physician Assistant Medical
DX: E78.2 Mixed hyperlipidemia (principal); E11.9 Type 2 diabetes mellitus without complications

== ENCOUNTER → 2021-04-07 | Outpatient (REF) ==
--- NOTE | 2021-04-07 11:55 | REP ---
INDICATION: JOINT PAIN COMPARISON: None TECHNIQUE: None three views FINDINGS: The compartments are symmetric and relatively well maintained. There is no evidence of a fracture, dislocation, or subluxation. There is no evidence of marginal osteophytosis. IMPRESSION: Limited three-view exam is within normal limits <Electronically signed by Don Beyer > 04/07/21 [id number]
--- NOTE | 2021-04-07 11:56 | REP ---
INDICATION: JOINT PAIN. COMPARISON: None TECHNIQUE: AP and frog-lateral views FINDINGS: There is slight asymmetric hip joint space narrowing without buttressing. There is no fracture, dislocation, or subluxation. IMPRESSION: Early degenerative changes <Electronically signed by Don Beyer > 04/07/21 [id number]
== END ==
LOC: M PLAIMG 10:59
PROVIDERS: ATTEND Internal Medicine
DX: Z00.00 Encounter for general adult medical examination without abnormal findings (principal)

== ENCOUNTER → 2023-01-17 | Outpatient (CLI) | payer OTHER ==
[2023-01-17 10:13] LABS: BASO % 0.6 % (0.0-1.0); EOS # 0.1 10^3/uL (0.0-0.5); EOS % 1.2 % (0.0-3.0); HEMATOCRIT 47.5 % (42.0-52.0); HEMOGLOBIN 16.2 g/dl (13.5-17.5); LYMPH # 1.9 10^3/uL (1.5-5.0); LYMPH % 27.7 % (24.0-44.0); MEAN CORPUSCULAR HEMOGLOBIN 31.6 pg (27.0-33.0); MEAN CORPUSCULAR HGB CONC 34.1 g/dl (32.0-36.5); MEAN CORPUSCULAR VOLUME 92.6 fl (80.0-96.0); MONO # 0.5 10^3/uL (0.0-0.8); MONO % 7.2 % (2.0-8.0); NEUTROPHILS # 4.3 10^3/uL (1.5-8.5); PLATELET COUNT, AUTOMATED 155 10^3/uL (150-450); RED BLOOD COUNT 5.13 10^6/uL (4.30-6.10); WHITE BLOOD COUNT 6.8 10^3/uL (4.0-10.0)
[2023-01-17 10:25] LABS: HEMOGLOBIN A1c 7.9 % (4.0-6.0)
[2023-01-17 10:41] LABS: ALKALINE PHOSPHATASE 86 U/L (46-116); ALT/SGPT 23 U/L (7.0-40); AST/SGOT 14 U/L (<34); BILIRUBIN,TOTAL 0.6 MG/DL (0.3-1.2); BLOOD UREA NITROGEN 7 MG/DL (9-23); CALCIUM LEVEL 9.2 MG/DL (8.5-10.1); CARBON DIOXIDE LEVEL 26 MMOL/L (20-31); CHLORIDE LEVEL 101 MMOL/L (98-107); CHOLESTEROL LEVEL 161 MG/DL (<200); CHOLESTEROL RISK RATIO 5.66 (<5); CREATININE FOR GFR 0.71 MG/DL (0.70-1.30); GLOMERULAR FILTRATION RATE > 60.0 (>56); GLUCOSE, FASTING 160 MG/DL (60-100); HDL CHOLESTEROL 28.4 MG/DL (>40); LDL CHOLESTEROL 95.8 MG/DL (<100); NON-HDL-C 132.6 MG/DL; POTASSIUM SERUM 4.1 MMOL/L (3.5-5.1); SODIUM LEVEL 136 MMOL/L (136-145); TOTAL PROTEIN 7.6 G/DL (5.7-8.2); TRIGLYCERIDES LEVEL 184 MG/DL (<150)
== END ==
LOC: M WUC 08:14
PROVIDERS: ATTEND Physician Assistant Medical
DX: E55.9 Vitamin D deficiency, unspecified (principal); E78.2 Mixed hyperlipidemia; I10 Essential (primary) hypertension; E11.9 Type 2 diabetes mellitus without complications

== ENCOUNTER → 2024-11-01 | Outpatient (CLI) | payer OTHER ==
[2024-11-01 12:40] LABS: PSA SCREENING 0.41 NG/ML (< 4.00)
[2024-11-01 12:41] LABS: ALKALINE PHOSPHATASE 57 U/L (40-129); ALT/SGPT 40 U/L (7.0-40); AST/SGOT 30 U/L (<34); BASO % 0.5 % (0.0-1.0); BILIRUBIN,TOTAL 0.7 MG/DL (0.3-1.2); BLOOD UREA NITROGEN 11 MG/DL (9-23); CALCIUM LEVEL 9.3 MG/DL (8.5-10.1); CARBON DIOXIDE LEVEL 29 MMOL/L (20-31); CHLORIDE LEVEL 102 MMOL/L (98-107); CREATININE FOR GFR 0.68 MG/DL (0.70-1.30); EOS # 0.1 10^3/uL (0.0-0.5); EOS % 1.5 % (0.0-3.0); GLOMERULAR FILTRATION RATE > 90.0 (>56); GLUCOSE, FASTING 177 MG/DL (60-100); HEMATOCRIT 46.1 % (42.0-52.0); LYMPH # 2.5 10^3/uL (1.5-5.0); LYMPH % 32.5 % (24.0-44.0); MEAN CORPUSCULAR HEMOGLOBIN 33.3 pg (27.0-33.0); MEAN CORPUSCULAR HGB CONC 34.7 g/dl (32.0-36.5); MEAN CORPUSCULAR VOLUME 95.8 fl (80.0-96.0); MONO # 0.7 10^3/uL (0.0-0.8); MONO % 8.6 % (2.0-8.0); NEUTROPHILS # 4.3 10^3/uL (1.5-8.5); NEUTROPHILS % 56.5 % (36.0-66.0); PLATELET COUNT, AUTOMATED 155 10^3/uL (150-450); POTASSIUM SERUM 4.1 MMOL/L (3.5-5.1); RED BLOOD COUNT 4.81 10^6/uL (4.30-6.10); SODIUM LEVEL 138 MMOL/L (136-145); TOTAL PROTEIN 7.9 G/DL (5.7-8.2); WHITE BLOOD COUNT 7.6 10^3/uL (4.0-10.0)
[2024-11-01 13:04] LABS: HEMOGLOBIN A1c 6.5 % (4.0-6.0)
== END ==
LOC: M WUC 10:35
PROVIDERS: ATTEND Physician Assistant Medical
DX: E55.9 Vitamin D deficiency, unspecified (principal); Z13.6 Encounter for screening for cardiovascular disorders; E11.9 Type 2 diabetes mellitus without complications; Z12.5 Encounter for screening for malignant neoplasm of prostate